=== PATIENT | male | born 1960 | race Caucasian/White ===

== ENCOUNTER 2019-03-02 12:56 | Emergency (ER) | payer OTHER, MEDICAID ==
[2019-03-02 13:07] VITALS: BP 152/93
--- NOTE | 2019-03-02 13:15 | UC ---
Dental HPI - HPI Summary HPI Summary: CHIEF COMPLAINT: 58 y/o male with toothache. Description of Pain: moderate tooth pain; over # 18 tooth. Began 2 weeks ago; no temp; on Elaquis. No face or neck involvement. Radiation: no Intensity:8/10 VITAL SIGNS & SaO2 REVIEWED. Within normal limits unless noted here. 153/93, on BP meds NURSES NOTE REVIEWED.LOST FILLING IN TOP LEFT MOLAR COUPLE DAYS AGO. WOKE UP 0100 W/ DENTAL PAIN. TAKING TYLENOL 1000mg tid PRN w/ some pain relief. - History of Current Complaint Chief Complaint: UCDentalProblem Stated Complaint: TOOTH ACHE Time Seen by Provider: 03/02/19 13:08 Pain Intensity: 8 - Allergies/Home Medications Allergies/Adverse Reactions: Allergies Allergy/AdvReac Type Severity Reaction Status Date / Time scopolamine Allergy Unknown Verified 03/02/19 13:00 Reaction Details Home Medications: Home Medications Apixaban* [Eliquis*] 5 mg PO BID 03/02/19 [History Confirmed 03/02/19] PMH/Surg Hx/FS Hx/Imm Hx - Additional Past Medical History Additional PMH: PAST MEDICAL HISTORY- HTN; hx of taking clonazepam. CHRONIC and RECURRENT HEALTH PROBLEM LIST REVIEWED: cholecystectomy VISIT HISTORY REVIEWED. MEDICATIONS & ALLERGIES REVIEWED. HYPERTENSION STATUS: on meds FAMILY HISTORY: Positive for: diabetes. Patient denies family history of: hypertension, cardiovascular disease, stroke, cancer. SOCIAL HISTORY: non-smoker, lives by himself, rare drinker. Previously Healthy: Yes - Surgical History Surgical History: Yes Surgery Procedure, Year, and Place: gallbladder removal- 2016. carpal tunnel release. diskectomy- 2014. LEFT KNEE 2019 - Family History Known Family History: Positive: Cardiac Disease, Diabetes - Social History Alcohol Use: Rare Substance Use Type: None Smoking Status (MU): Never Smoked Tobacco Review of Systems All Other Systems Reviewed And Are Negative: Yes Constitutional: Positive: Negative ENT: Positive: Dental Pain - #18 Respiratory: Positive: Negative. Negative: Shortness Of Breath Cardiovascular: Positive: Negative. Negative: Palpitations Gastrointestinal: Positive: Negative. Negative: Abdominal Pain Is Patient Immunocompromised?: No Physical Exam - Summary Physical Exam Summary: Appearance: The patient is well-appearing, is in no pain or distress, and is well-nourished. Eyes: Conjunctiva are clear. Pupils are equal and reactive to light and accommodation. Extra ocular muscle movement is intact. ENT: The hearing is grossly normal, the pharynx is normal, and the TMs are normal. There is no muffled or hoarse voice. No stridor. No facial swelling or anterior cervical adenopathy. Tender over tooth #18. Tooth has lost it filling. Palpation reveals no megan-apical abscess but patient is tender near top of the tooth. Neck: The neck is supple and there is no lymphadenopathy. Respiratory: The chest is non-tender to palpation and without crepitus. The lungs are clear, there are normal breath sounds, and there is no respiratory distress. No wheezes, rales or rhonchi. Cardiovascular: Heart sounds reveal a regular rate and rhythm. There are no clicks, rubs or murmurs. There are no carotid bruits or thrills. Circulation is grossly intact. Abdomen: The abdomen is soft and nontender. There is no organomegaly. Bowel sounds are present and within normal limits. No point tenderness at McBurneys point. No CVA tenderness. Musculoskeletal: Strength is intact. The patient moves all extremities. Neurological: The patient is alert. Motor and sensory are examination grossly intact. Speech is normal. Psychological: The patient displays age appropriate behavior, and is conversant. GCS=15. Skin: Negative for rashes. Triage Information Reviewed: Yes Vital Signs: Initial Vital Signs Temp 99.6 F 03/02/19 13:01 Pulse 89 03/02/19 13:01 Resp 16 03/02/19 13:01 BP 152/93 03/02/19 13:01 Pulse Ox 97 03/02/19 13:01 Vital Signs Reviewed: Yes Dental Complaint Course/Dx - Course Course Of Treatment: MEDICAL DECISION MAKING and PLAN: 58 y/o with moderate tooth pain; over # 18 tooth. Began 2 weeks ago; no temp; on Elaquis. No face or neck involvement. 99.6 temp. Tooth has lost filling. Dx is toothache. No megan apical abscess yet. Patient will use filler at pharmacy and go to dentist next week. Started on pen vk for 7 days, 500mg, four times a day. Also given 6 Vicodin. MEDICATIONS REVIEWED. HYPERTENSION STATUS REVIEWED WITH PATIENT IF blood pressure is above 120/80. Patient is being treated for hypertension, and will follow up with PMD within 4 weeks. [facility] prescription monitor: Reference #: [id number] Rx Written Rx Dispensed Drug Quantity Days Supply Prescriber Name 02/13/201912/2018 clonazepam 1 mg tablet 60 30 Dorothy Amor C 11/15/2018 11/16/2018 clonazepam 1 mg tablet 60 30 HettickKim 08/14/2018 08/15/2018 clonazepam 1 mg tablet 60 30 HettickKim 06/08/2018 06/09/2018 clonazepam 1 mg tablet 30 15 HettickKim guevara 06/01/2018 06/01/2018 hydrocodone-acetaminophen 5-325 mg tablet 20 5 Danisha Penny MD - Differential Dx/Diagnosis Differential Diagnosis/Dx: Dental Abscess, Dental Caries Provider Diagnosis: Toothache Discharge - Sign-Out/Discharge Documenting (check all that apply): Patient Departure All imaging exams completed and their final reports reviewed: No Studies - Discharge Plan Condition: Stable Disposition: HOME Prescriptions: HYDROcodone/ACETAMIN 5-325 MG* [[place] 5-325 TAB*] 1 tab PO Q6H #9 tab MDD 4 Penicillin VK TAB* [Penicillin VK 250 mg Tab*] 500 mg PO QID #28 tab MDD 4 Patient Education Materials: Toothache (ED) Referrals: Dorothy Amor [employer] [Primary Care Provider] - Additional Instructions: WE DISCUSSED: PLEASE SEEK CARE AT THE EMERGENCY DEPARTMENT IF SYMPTOMS WORSEN OR IF NEW SYMPTOMS DEVELOP. FOLLOW UP WITH YOUR PRIMARY CARE PHYSICIAN IF CONDITION CONTINUES BEYOND 3 DAYS WITHOUT IMPROVEMENT. YOUR DIAGNOSIS IS: tootheache # 18 plus a possible abscess at the top of your tooth. YOUR PRESCRIPTION RECOMMENDATION IS: Vicodine # 9 for pain; one pill up to every 6 hours; Pen VK 500mg, four times a day for 7 days OTHER INSTRUCTIONS: Hypertension Discharge Instructions: Your blood pressure reading today was 152/93 , indicating HYPERTENSION. Follow- up with your primary care provider within 4 weeks for blood pressure check and appropriate recommendations and treatment, as needed. FOR PAIN AND/OR SLEEP: For pain: acetaminophen (Tylenol and other brand names) 500mg - 1000mg every 8 hours. Go to drugstore for protective paste. Your toothe has lost part of the filling and is open to the air. Warm moist heat to your cheek, and hot water salt gargles every 4 hours. Vicodin has Tylenol in it. Don't double up with these. Go to ED for increased facial swelling, pain, redness or temperature. - Billing Disposition and Condition Condition: STABLE Disposition: Home
== END 2019-03-02 14:13 | disposition home or self-care (01) ==
LOC: UCEAST 12:56
DX: K08.89 Other specified disorders of teeth and supporting structures (principal); I10 Essential (primary) hypertension; Z79.01 Long term (current) use of anticoagulants
CPT/HCPCS: 99212; G0463

== ENCOUNTER 2019-05-15 07:40 | Emergency (ER) | payer OTHER, MEDICAID ==
--- OUTSIDE RECORDS SUMMARY | 2019-05-15 07:46 | XMS REPORT | Continuity of Care Document ---
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 Dorothy Amor FNP Primary Care Physician Unavailable Payers Date Identification Numbers Payment Provider Subscriber Policy Number: [id number] [facility] Community Plan Josh Ty PayID: [id number] [address] [place] [address] Problems Active Problems Provider Date Non-alcoholic fatty liver Mariely Brooks PA-C Onset: 03/06/2017 Lipoma (clinical) Mariely Brooks PA-C Onset: 03/06/2017 Note: mesenteric CT a&p February 2017 Pure hypercholesterolemia Abdon Justin MD,FACS Onset: 03/08/2017 Increased creatine kinase level Mariely Brooks PA-C Onset: 03/09/2017 Note: recurring, noted 2016 Diverticulitis Kim Richardson RPAC Onset: 07/25/2017 Note: 1999 Anxiety Kim Richardson RPAC Onset: 07/26/2017 Note: with insomnia Flatulence, eructation and gas pain Rolando Flores MD Onset: 09/01/2017 Heartburn Rolando Flores MD Onset: 09/01/2017 Note: endoscopy 08/2017 Morrissey's Degenerative joint disease involving Kim Richardson RPAC Onset: 2017 multiple joints Note: hips, lumbar Localized, primary osteoarthritis Beronica Miranda PA Onset: 04/30/2018 Derangement of knee Beronica Miranda PA Onset: 04/30/2018 Note: left Knee pain Kim Richardson RPAC Onset: 04/27/2018 Sprain of medial collateral ligament of Beronica Miranda PA Onset: 05/14/2018 knee Old tear of posterior horn of medial Beronica Miranda PA Onset: 05/14/2018 meniscus Essential hypertension Kim Richardson [facility] Onset: 05/25/2018 Note: treated with HCTZ Deep venous thrombosis Kim Richardson [facility] Onset: 09/27/2018 Note: LLE 09/2018 Pulmonary embolism Kim Richardson [facility] Onset: 09/27/2018 Note: 09/2018 Methylenetetrahydrofolate reductase deficiency MylesjoseKim DO Onset: Vitamin B deficiency Kim Quezada DO Onset: 02/18/2019 Vitamin D deficiency Kim Quezada DO Onset: 02/18/2019 H/O: pulmonary embolus MylesemreKim wetzel DO Onset: 04/10/2019 History of thromboembolism of vein HalirashardKim DO Onset: 04/10/2019 Hypercoagulability state Mylesjose KimDO Onset: 04/10/2019 Inactive Problems Weight decreased Rolando Flores MD Onset: 09/01/2017 Inactive: 05/25/2018 Resolved Problems Cholelithiasis without obstruction Mariely Brooks PA-C Onset: 2016 Resolved: 07/25/2017 Note: CT a&p, Disida scan February 2017 Gallstone Abdon Justin MD,FACS Onset: 03/27/2017 Resolved: 07/25/2017 Abdominal pain Abdon Justin MD,FACS Onset: 03/08/2017 Resolved: 07/25/2017 Family History Date Family Member(s) Observation Comments General Non Contributory Father Stroke Mother Stroke First Son Thrombosis quadriplegia First Sister Cancer Lymphoma First Sister Rheumatoid Arthritis Maternal Grandmother due to Heart Disease () Maternal Grandmother due to Type 2 Diabetes Mellitus () Social History Type Date Description Comments Sex Unknown Marital Status Single Marital Status Patient is Lives With Alone Home Environment Lives Alone Diet Patient follows no dietary restrictions 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 Tobacco Use Start: Unknown End: Quit Unknown Smoking Status Reviewed: 04/10/19 Quit Smokeless Tobacco Never Used Smokeless Tobacco ETOH Use Rarely consumes alcohol Tobacco Use Start: Unknown End: Patient is a former smoker ~1997 Unknown Recreational Drug Use Never Used Drugs Allergies, Adverse Reactions, Alerts Active Allergies Reaction Severity Comments Date Scopolamine nausea, hyper 03/06/2017 Trazodone cannot tolerate 07/26/2017 Atorvastatin muscle cramps 11/13/2018 Medications Active Medications SIG Qnty Indications Ordering Date Provider Folbee 1 tabl by mouth 30tabs Boufal, 04/18/2019 2.5-25-1mg Tablets every day DO Kim Ergocalciferol 1 cap by mouth 6caps Boufal, 02/18/2019 [id number] Capsules every week DO Kim Eliquis one tablet by 60tabs Dorothy Amor, 09/29/2018 5mg Tablets mouth twice a [employer] day Clonazepam take 1/2 to 1 60tabs Dorothy Amor, 11/17/2017 1mg Tablets tablet by mouth [employer] twice daily as needed for anxiety/ panic episode, maximum daily dose=2, Reference #: [id number] Paroxetine HCL take one tablet 90tabs Dorothy Amor, 08/16/2017 10mg Tablets by mouth every [employer] morning Clonidine HCL take one tablet 30tabs Dorothy Amor, 07/26/2017 0.1mg Tablets by mouth at [employer] bedtime as needed Hydroxyzine HCL Take One To Two 60tabs G47.00 Dorothy Amor, 07/26/2017 25mg Tablets Tablets By [employer] Mouth AT Bedtime as Needed For Insomnia Maximum Daily Dose=2 Losartan Potassium take one tablet 90tabs Dorothy Amor, 50mg Tablets by mouth every [employer] day Omeprazole take one 90caps Dorothy Amor, 40mg Capsules DR capsule by [employer] mouth every day Cyclobenzaprine HCL take one tablet 270tabs Dorothy Amor, 10mg Tablets by mouth three [employer] times a day as needed Hydrochlorothiazide take one tablet 90tabs Cale, 25mg Tablets by mouth every Jaime, M.D. day History Medications Folbee 1 tabl by mouth 30tabs Damien, 02/18/2019 - 2.5-25-1mg every day DO Kim 04/10/2019 Tablets Lovaza 2 caps by mouth 360caps E78.5 Jaime Madsen, 11/20/2018 - 1gm Capsules twice a day M.D. 11/22/2018 Vascepa 2 caps by mouth 120caps E78.5 Jaime Madsen, 11/13/2018 - 1gm Capsules twice a day M.D. 11/20/2018 Cephalexin 1 po tid 30caps Catrachito Daphnie, 11/02/2018 - 500mg MD 11/07/2018 Capsules Prednisone 1 tab by mouth 10tabs M25.571 Catrachito Daphnie, 10/31/2018 - 20mg twice a day MD 11/05/2018 Tablets Colchicine 2 po with first 30caps M25.571 Catrachito, Daphnie, 10/31/2018 - 0.6mg dose, then 1 po MD 11/07/2018 Capsules tid. Continue for 3 days after pain resolves. If develops diarrhea, decrease to 1 po daily Atorvastatin Calcium take one tablet 90tabs Jaime Madsen, 08/14/2018 - by mouth every M.D. 10/02/2018 20mg Tablets night Hydrocodone-Acetamin 1 tab by mouth 60tabs Danisha Penny 06/01/2018 - ophen every 4 - 6 hours 06/12/2018 5-325mg Tablets as need for pain.... Clonazepam 1/2-1 tab by 14tabs Jaime Madsen, 09/01/2017 - 1mg mouth twice a day M.D. Unknown Tablets as needed for anxiety/panic episode ::: mdd 2 Golytely drink half the 4000ml Z12.Christiane Flores MD 09/01/2017 - 236gm evening before 12/20/2017 Solution Rec and half the morning of the procedure (1 cup every 10') Dulcolax 4 tablets taken a 4tabs Z12.Christiane Flores MD 09/01/2017 - 5mg Tablets 8pm the day 12/20/2017 DR before the procedure Magnesium Citrate 1 bottle po x one 296ml Apolonia12.Christiane Flores MD 09/01/2017 - as directed 12/20/2017 1.745GM/30ML Solution Paroxetine HCL ER 1 by mouth every 30tabs Jaime Madsen, 07/26/2017 - Am M.D. 08/16/2017 12.5mg Tablets ER 24HR Mirtazapine 1 at hs prn G47.00 Jaime Madsen, 07/05/2017 - 15mg M.D. 07/26/2017 Tablets Belsomra 1 tablet by mouth 30tabs Jaime Madsen, 07/04/2017 - 10mg Tablets every night at M.D. Unknown bedtime as needed Trazodone HCL take one to two 180tabs Albin Madsenshan, 07/03/2017 - 50mg tablets by mouth M.D. 07/05/2017 Tablets at bedtime Mirtazapine 1/2 -1 tablet by 30tabs G47.00 Liborio Madsenan, 06/12/2017 - 15mg mouth at at M.D. 07/03/2017 Tablets bedtime Amoxicillin 1 by mouth three 21caps K02.3 MadsenAlbin tuckershan, 03/06/2017 - 500mg times a day x 7 M.D. 03/27/2017 Capsules days Probiotic 1-2 capsules by 90caps K02.3 MadsenAlbinJaime, 03/06/2017 - Acidophilus mouth daily x 10 M.D. Unknown Capsules days Naproxen take one tablet 180tabs Jaime Madsen, - 500mg by mouth with M.D. 10/02/2018 Tablets food, twice a day as needed Atorvastatin Calcium take one tablet 90tabs Liborio Madsenan, - by mouth every M.D. 04/27/2018 20mg Tablets night Probiotic 1 by mouth every Unknown - Capsules day 11/07/2018 Potassium Chloride Take One Tablet Unknown - Rosanne ER By Mouth Three 04/30/2018 20Meq Tablets Times A Day ER Magnesium Oxide Take One Tablet Unknown - By Mouth Twice A 11/07/2018 400(241.3Mg) mg Day Tablets Medications Administered in Office Medication SIG Qnty Indications Ordering Provider Date Vitamin B12 Injection 1000 Kim Quezada DO 04/10/2019 mcg/Ml Injection PPD Family Nurse 02/25/2019 Injection Vital Signs Date Vital Result Comment 04/10/2019 1:55pm BP Systolic 138 mmHg BP Diastolic 78 mmHg Body Temperature 97.8 F Heart Rate 86 /min Respiratory Rate 20 /min Height 68 inches 5'8" Weight 241.00 lb BMI (Body Mass Index) 36.6 kg/m2 BSA (Body Surface Area) 2.21 m2 Veblen body weight in kilograms 70 kg O2 % BldC Oximetry 94 % Pain Level 0 04/10/2019 9:14am Body Temperature 98.6 F Heart Rate 80 /min Respiratory Rate 16 /min Weight 240.12 lb O2 % BldC Oximetry 98 % Pain Level 0 02/25/2019 10:59am Body Temperature 97.8 F Heart Rate 84 /min O2 % BldC Oximetry 96 % 02/18/2019 7:50am BP Systolic 127 mmHg BP Diastolic 79 mmHg Body Temperature 97.5 F Heart Rate 82 /min Respiratory Rate 16 /min Weight 248.38 lb O2 % BldC Oximetry 97 % Pain Level 0 12/31/2018 9:47am BP Systolic 132 mmHg BP Diastolic 78 mmHg Body Temperature 97.7 F Heart Rate 94 /min Respiratory Rate 18 /min Height 68 inches 5'8" Weight 245.00 lb BMI (Body Mass Index) 37.2 kg/m2 BSA (Body Surface Area) 2.23 m2 [place] body weight in kilograms 70 kg O2 % BldC Oximetry 95 % 11/20/2018 2:30pm BP Systolic 138 mmHg BP Diastolic 84 mmHg Body Temperature 98.4 F Heart Rate 84 /min Respiratory Rate 18 /min Weight 239.38 lb O2 % BldC Oximetry 97 % Pain Level 0 11/13/2018 1:27pm BP Systolic Sitting Left Arm 124 mmHg BP Diastolic Sitting Left Arm 74 mmHg Body Temperature 99.3 F Heart Rate 95 /min Respiratory Rate 18 /min Height 68 inches 5'8" Weight 235.00 lb BMI (Body Mass Index) 35.7 kg/m2 BSA (Body Surface Area) 2.19 m2 [place] body weight in kilograms 70 kg O2 % BldC Oximetry 98 % Ra 11/07/2018 8:26am BP Systolic 118 mmHg L BP Diastolic 72 mmHg L Body Temperature 98.4 F Heart Rate 90 /min Respiratory Rate 18 /min Weight 237.38 lb O2 % BldC Oximetry 98 % Pain Level 0 10/31/2018 10:52am BP Systolic Sitting Left Arm 143 mmHg BP Diastolic Sitting Left Arm 84 mmHg Body Temperature 100.0 F Heart Rate 89 /min Respiratory Rate 16 /min Height 68 inches 5'8" Weight 237.00 lb BMI (Body Mass Index) 36.0 kg/m2 BSA (Body Surface Area) 2.20 m2 O2 % BldC Oximetry 98 % 10/02/2018 1:18pm BP Systolic Sitting Left Arm 148 mmHg BP Diastolic Sitting Left Arm 84 mmHg Body Temperature 98.7 F Heart Rate 93 /min Respiratory Rate 20 /min Height 68 inches 5'8" Weight 235.00 lb BMI (Body Mass Index) 35.7 kg/m2 BSA (Body Surface Area) 2.19 m2 O2 % BldC Oximetry 98 % 08/14/2018 10:00am BP Systolic 144 mmHg BP Diastolic 88 mmHg Body Temperature 98.9 F Heart Rate 97 /min Respiratory Rate 18 /min Height 68 inches 5'8" Weight 236.50 lb BMI (Body Mass Index) 36.0 kg/m2 BSA (Body Surface Area) 2.19 m2 O2 % BldC Oximetry 97 % 07/11/2018 9:21am BP Systolic 122 mmHg BP Diastolic 74 mmHg Body Temperature 97.8 F Heart Rate 76 /min Height 68 inches 5'8" Weight 233.00 lb BMI (Body Mass Index) 35.4 kg/m2 BSA (Body Surface Area) 2.18 m2 O2 % BldC Oximetry 99 % Pain Level 0 06/12/2018 10:38am BP Systolic Sitting Left Arm 119 mmHg BP Diastolic Sitting Left Arm 75 mmHg Body Temperature 98.7 F Heart Rate 81 /min Respiratory Rate 16 /min Height 68 inches 5'8" Weight 233.00 lb BMI (Body Mass Index) 35.4 kg/m2 BSA (Body Surface Area) 2.18 m2 O2 % BldC Oximetry 98 % 05/25/2018 10:37am BP Systolic 123 mmHg BP Diastolic 81 mmHg Body Temperature 98.2 F Heart Rate 76 /min Respiratory Rate 18 /min Height 68 inches 5'8" Weight 233.12 lb BMI (Body Mass Index) 35.4 kg/m2 BSA (Body Surface Area) 2.18 m2 O2 % BldC Oximetry 96 % 05/17/2018 10:22am BP Systolic Sitting Left Arm 124 mmHg BP Diastolic Sitting Left Arm 81 mmHg Body Temperature 98.1 F Heart Rate 79 /min Respiratory Rate 17 /min Height 68 inches 5'8" Weight 235.00 lb BMI (Body Mass Index) 35.7 kg/m2 BSA (Body Surface Area) 2.19 m2 O2 % BldC Oximetry 96 % 05/14/2018 10:15am BP Systolic Sitting Left Arm 128 mmHg BP Diastolic Sitting Left Arm 74 mmHg Body Temperature 98.0 F Heart Rate 77 /min Respiratory Rate 16 /min Height 68 inches 5'8" Weight 233.00 lb BMI (Body Mass Index) 35.4 kg/m2 BSA (Body Surface Area) 2.18 m2 O2 % BldC Oximetry 98 % 04/30/2018 2:18pm BP Systolic Sitting Right Arm 119 mmHg BP Diastolic Sitting Right Arm 81 mmHg Body Temperature 98.8 F Heart Rate 70 /min Respiratory Rate 17 /min Height 68 inches 5'8" Weight 230.00 lb BMI (Body Mass Index) 35.0 kg/m2 BSA (Body Surface Area) 2.17 m2 O2 % BldC Oximetry 98 % 04/27/2018 9:54am BP Systolic Sitting Right Arm 118 mmHg BP Diastolic Sitting Right Arm 72 mmHg Body Temperature 97.9 F Heart Rate 72 /min reg Respiratory Rate 18 /min Height 68 inches 5'8" Weight 228.00 lb BMI (Body Mass Index) 34.7 kg/m2 BSA (Body Surface Area) 2.16 m2 O2 % BldC Oximetry 95 % ra 12/20/2017 9:14am BP Systolic Sitting Right Arm 104 mmHg BP Diastolic Sitting Right Arm 60 mmHg Heart Rate 62 /min Height 68 inches 5'8" Weight 220.00 lb BMI (Body Mass Index) 33.4 kg/m2 BSA (Body Surface Area) 2.13 m2 O2 % BldC Oximetry 95 % ra 09/13/2017 11:37am BP Systolic Sitting Left Arm 112 mmHg BP Diastolic Sitting Left Arm 62 mmHg Heart Rate 74 /min Respiratory Rate 18 /min Height 68 inches 5'8" Weight 220.00 lb BMI (Body Mass Index) 33.4 kg/m2 BSA (Body Surface Area) 2.13 m2 O2 % BldC Oximetry 98 % ra 09/01/2017 12:53pm BP Systolic Sitting Left Arm 120 mmHg BP Diastolic Sitting Left Arm 72 mmHg Heart Rate 74 /min Respiratory Rate 16 /min Height 68 inches 5'8" Weight 220.00 lb BMI (Body Mass Index) 33.4 kg/m2 BSA (Body Surface Area) 2.13 m2 07/26/2017 9:16am BP Systolic Sitting Right Arm 112 mmHg BP Diastolic Sitting Right Arm 72 mmHg Heart Rate 89 /min Height 68 inches 5'8" Weight 222.00 lb BMI (Body Mass Index) 33.8 kg/m2 BSA (Body Surface Area) 2.14 m2 O2 % BldC Oximetry 98 % ra 06/12/2017 10:06am BP Systolic Sitting Left Arm 142 mmHg BP Diastolic Sitting Left Arm 82 mmHg Heart Rate 80 /min Respiratory Rate 20 /min Height 68 inches 5'8" Weight 226.00 lb BMI (Body Mass Index) 34.4 kg/m2 BSA (Body Surface Area) 2.15 m2 06/05/2017 10:43am BP Systolic Sitting Left Arm 118 mmHg BP Diastolic Sitting Left Arm 84 mmHg Heart Rate 78 /min Respiratory Rate 24 /min Height 68 inches 5'8" Weight 229.00 lb BMI (Body Mass Index) 34.8 kg/m2 BSA (Body Surface Area) 2.16 m2 O2 % BldC Oximetry 99 % ra 03/27/2017 9:50am BP Systolic 138 mmHg BP Diastolic 78 mmHg Height 68 inches 5'8" Weight 244.00 lb BMI (Body Mass Index) 37.1 kg/m2 BSA (Body Surface Area) 2.22 m2 03/08/2017 9:31am BP Systolic 130 mmHg BP Diastolic 82 mmHg Height 68 inches 5'8" Weight 245.00 lb BMI (Body Mass Index) 37.2 kg/m2 BSA (Body Surface Area) 2.23 m2 03/06/2017 11:21am BP Systolic 132 mmHg BP Diastolic 82 mmHg Heart Rate 77 /min Height 68 inches 5'8" Weight 246.00 lb BMI (Body Mass Index) 37.4 kg/m2 BSA (Body Surface Area) 2.23 m2 11/09/2006 9:12am Height 68 inches 5'8" Weight 247.00 lb Results Test Date Facility Test Result H/L Range Note Homocyst(E)I 04/01/2019 [facility] Homocyst(e)in 12.3 umol/L 0.0-15.0 1, 2 ne, P/S [address] e, [place] [address] [phone] CBC 04/01/2019 [facility] White Blood 6.8 K/uL Normal 3.4-10.5 W/Automated [address] [place] [address] [phone] Red Blood Count 4.60 M/uL Normal 4.20-5.80 Hemoglobin 14.7 gm/dL Normal 12.8-17.0 Hematocrit 43.4 % Normal 38.0-48.0 Mean Cell Volume 94.3 fl Normal 80.0-96.0 Mean Corpuscular HGB 32.0 pg Normal 27.0-33.0 Mean Corpuscular HGB Conc 33.9 g/dL Normal 31.7-36.0 Platelet Count 310 K/uL Normal 155-360 Red Cell Distri Width SD 42.9 fl Normal 36-51 Red Cell Distri Width %CV 12.5 % Normal 11.6-15.8 Mean Platelet Volume 8.7 fl Normal 6.6-10.6 Neut% 53.2 % Normal 33.0-73.0 Lymph % 33.3 % Normal 20.0-42.0 [place] % 10.0 % Normal 0.0-10.0 Eo% 2.5 % Normal 0.0-6.6 Bas% 0.6 % Normal 0.0-1.1 Immature Grans 0.4 % Normal 0.0-5.0 NRBC % 0.4 /100WBC < 10/ 100 WBC Neut# 3.63 K/uL Normal 1.8-7.0 Lymph # 2.27 K/uL Normal 1.0-4.0 [place] # 0.68 K/uL Normal 0.0-0.8 Eos # 0.17 K/uL Normal 0.0-0.5 Baso # 0.04 K/uL Normal 0.0-0.1 Immature Grans Absolute 0.03 K/uL NRBC # 0.03 K/uL Comprehensive Metabolic 04/01/2019 [facility] Glucose 113 mg/dL High 74-[address] [place] [address] [phone] BUN 18 mg/dL Normal 7-18 Creatinine 1.1 mg/dL Normal 0.6-1.3 Glom Filtration Rate, Estimate >60 mL/min >60 If >60 mL/min >60 3 BUN/Creat 16.3 ratio Sodium 136 mmol/L Normal 136-145 Potassium 3.6 mmol/L Normal 3.5-5.1 Chloride 102 mmol/L Normal 98-107 Carbon Dioxide 27 mmol/L Normal 21-32 Anion Gap 7 mEq/L Low 8-16 Calcium 9.3 mg/dL Normal 8.5-10.1 Total Protein 7.7 g/dL Normal 6.4-8.2 Albumin 3.7 g/dL Normal 3.4-5.0 Globulin 4.0 g/dL Normal 1.9-4.3 Alb/Glob 0.9 ratio Bilirubin,Total 0.4 mg/dL Normal 0.2-1.0 Sgot/Ast 30 U/L Normal 15-37 SGPT/Alt 53 U/L Normal 12-78 Alkaline Phosphatase 44 U/L Low 45-117 Vitamin B12 And 04/01/2019 [facility] Vitamin B12 438 pg/mL Normal 193-[address] [place] [address] [phone] Folic Acid 19.9 ng/mL High 3.1-17.5 Laboratory 04/01/2019 [facility] Vitamin 25.8 Low 30.0-100.0 4 test finding [address] D,25-Hydroxy ng/[place] [address] [phone] Iron-Tibc-%Sat 04/01/2019 [facility] Serum Iron 147 Normal 65-[address] g/[place] [address] [phone] Total Iron Binding Capacity 304 g/dL Normal 250-450 Transferrin %Saturation 48 % Normal 12-57 Laboratory test 04/01/2019 [facility] Ferritin 176 Normal 26-[address] ng/[place] [address] [phone] Anticardiolipin AB 02/15/2019 [facility] Anticardiolipin 20 High 0-14 5 Iga/Igg/Igm [address] Igg GPLU/[place] [address] [phone] Anticardiolipin Igm, Quant 13 MPLU/mL High 0-12 6 Anticardiolipin Iga < 9 APLU/mL 0-11 7 Laboratory test 02/15/2019 [facility] Ferritin 205 ng/mL Normal 26-[address] [place] [address] [phone] Iron-Tibc-%Sat 02/15/2019 [facility] Serum Iron 134 g/dL Normal 65-[address] [place], [place] [id number] [phone] Total Iron Binding Capacity 339 g/dL Normal 250-450 Transferrin %Saturation 40 % Normal 12-57 Laboratory 02/15/2019 [facility] Vitamin 21.1 Low 30.0-100.0 8 test finding [address] D,25-Hydroxy ng/[place] [address] [phone] Vitamin B12 02/15/2019 [facility] Vitamin B12 462 Normal 193-[address] pg/[place] [address] [phone] Folic Acid 16.8 ng/mL Normal 3.1-17.5 Comprehensive 02/15/2019 [facility] Glucose 104 mg/dL Normal 74-106 Metabolic Panel [address] [place] [address] [phone] BUN 23 mg/dL High 7-18 Creatinine 1.1 mg/dL Normal 0.6-1.3 Glom Filtration Rate, Estimate >60 mL/min >60 If >60 mL/min >60 9 BUN/Creat 20.9 ratio Sodium 132 mmol/L Low 136-145 Potassium 3.7 mmol/L Normal 3.5-5.1 Chloride 99 mmol/L Normal 98-107 Carbon Dioxide 28 mmol/L Normal 21-32 Anion Gap 5 mEq/L Low 8-16 Calcium 9.2 mg/dL Normal 8.5-10.1 Total Protein 8.1 g/dL Normal 6.4-8.2 Albumin 4.0 g/dL Normal 3.4-5.0 Globulin 4.1 g/dL Normal 1.9-4.3 Alb/Glob 1.0 ratio Bilirubin,Total 0.5 mg/dL Normal 0.2-1.0 Sgot/Ast 34 U/L Normal 15-37 SGPT/Alt 63 U/L Normal 12-78 Alkaline Phosphatase 46 U/L Normal 45-117 CBC W/Automated 02/15/2019 [facility] White Blood 7.4 K/uL Normal 3.4-10.[address] [place] [address] [phone] Red Blood Count 4.75 M/uL Normal 4.20-5.80 Hemoglobin 15.4 gm/dL Normal 12.8-17.0 Hematocrit 44.7 % Normal 38.0-48.0 Mean Cell Volume 94.1 fl Normal 80.0-96.0 Mean Corpuscular HGB 32.4 pg Normal 27.0-33.0 Mean Corpuscular HGB Conc 34.5 g/dL Normal 31.7-36.0 Platelet Count 342 K/uL Normal 155-360 Red Cell Distri Width SD 43.8 fl Normal 36-51 Red Cell Distri Width %CV 12.6 % Normal 11.6-15.8 Mean Platelet Volume 8.9 fl Normal 6.6-10.6 Neut% 50.2 % Normal 33.0-73.0 Lymph % 36.5 % Normal 20.0-42.0 [place] % 10.1 % High 0.0-10.0 Eo% 2.3 % Normal 0.0-6.6 Bas% 0.5 % Normal 0.0-1.1 Immature Grans 0.4 % Normal 0.0-5.0 NRBC % 0.0 /100WBC < 10/ 100 WBC Neut# 3.72 K/uL Normal 1.8-7.0 Lymph # 2.71 K/uL Normal 1.0-4.0 [place] # 0.75 K/uL Normal 0.0-0.8 Eos # 0.17 K/uL Normal 0.0-0.5 Baso # 0.04 K/uL Normal 0.0-0.1 Immature Grans Absolute 0.03 K/uL NRBC # 0.00 K/uL Homocyst(E)Ine, 02/15/2019 [facility] Homocyst(e)ine, 14.0 0.0-15.0 10 P/S [address] P/S umol/[place] [address] [phone] Laboratory test 11/07/2018 [facility] DRVVT Mix 50.0 High 0.0-47.0 [address] [place] [address] [phone] DRVVT Confirm 1.4 ratio High 0.8-1.2 Anticardiolipin AB 11/07/2018 [facility] Anticardiolipin 26 High 0-14 12 Iga/Igg/Igm [address] Igg GPLU/[place] [address] [phone] Anticardiolipin Igm, Quant 14 MPLU/mL High 0-12 13 Anticardiolipin Iga < 9 APLU/mL 0-11 14 Lupus Anticoagulant Reflex 11/07/2018 [facility] PTT-LA 34.7 sec 0.0-51.[address] [place] [address] [phone] DRVVT 64.9 sec High 0.0-47.0 Note: Comment: . 15 Methylenetetrahydrofolate 11/07/2018 [facility] MTHFR,Dna (SEE [address] Analysis NOTE) [place] [address] [phone] Factor II Dna Analysis 11/07/2018 [facility] Factor II, (SEE Abnormal [address] Dna NOTE) [place] [address] Analysis [phone] Factor V Leiden Mutation 11/07/2018 [facility] Factor V (SEE [address] Leiden NOTE) [place] [address] [phone] CBC W/Automated Diff 10/31/2018 [facility] White Blood 11.2 High [address] Count K/[place] [address] [phone] - 1 0 . 5 Red Blood Count 4.48 M/uL Normal 4.20-5.80 Hemoglobin 14.6 gm/dL Normal 12.8-17.0 Hematocrit 42.7 % Normal 38.0-48.0 Mean Cell Volume 95.3 fl Normal 80.0-96.0 Mean Corpuscular HGB 32.6 pg Normal 27.0-33.0 Mean Corpuscular HGB Conc 34.2 g/dL Normal 31.7-36.0 Platelet Count 337 K/uL Normal 155-360 Red Cell Distri Width SD 43.9 fl Normal 36-51 Red Cell Distri Width %CV 12.8 % Normal 11.6-15.8 Mean Platelet Volume 9.4 fL Normal 6.6-10.6 Neut% 61.7 % Normal 33.0-73.0 Lymph % 25.1 % Normal 20.0-42.0 [place] % 10.8 % High 0.0-10.0 Eo% 2.1 % Normal 0.0-6.6 Bas% 0.3 % Normal 0.0-1.1 Neut# 6.89 K/uL Normal 1.8-7.0 Lymph # 2.80 K/uL Normal 1.0-4.0 [place] # 1.20 K/uL High 0.0-0.8 Eos # 0.23 K/uL Normal 0.0-0.5 Baso # 0.03 K/uL Normal 0.0-0.1 Laboratory test 10/31/2018 [facility] Uric Acid 5.8 mg/dL Normal 3.5-7.2 finding [address] [place] [address] [phone] CBC 09/29/2018 [facility] White 9.3 K/uL Normal 3.4-10.5 20 134 [facility] [place] [address] Count [phone] Red Blood Count 4.78 M/uL Normal 4.20-5.80 Hemoglobin 15.4 gm/dL Normal 12.8-17.0 Hematocrit 45.5 % Normal 38.0-48.0 Mean Cell Volume 95.2 fl Normal 80.0-96.0 Mean Corpuscular HGB 32.2 pg Normal 27.0-33.0 Mean Corpuscular HGB Conc 33.8 g/dL Normal 31.7-36.0 Platelet Count 289 K/uL Normal 155-360 Red Cell Distri Width %CV 13.0 % Normal 11.6-15.8 Mean Platelet Volume 9.0 fL Normal 6.6-10.6 Basic Metabolic Panel 09/29/2018 [facility] Glucose 106 mg/dL Normal 74-106 [address] [place] [address] [phone] BUN 17 mg/dL Normal 7-18 Creatinine 1.0 mg/dL Normal 0.6-1.3 Glom Filtration Rate, Estimate >60 mL/min >60 If >60 mL/min >60 21 BUN/Creat 17.0 ratio Sodium 138 mmol/L Normal 136-145 Potassium 3.7 mmol/L Normal 3.5-5.1 Chloride 101 mmol/L Normal 98-107 Carbon Dioxide 30 mmol/L Normal 21-32 Anion Gap 7 mEq/L Low 8-16 Calcium 9.2 mg/dL Normal 8.5-10.1 Laboratory 09/29/2018 [facility] Act 64.9 High 23.4-35.0 22 test finding [address] [place] [address] [employer] [phone] Time Laboratory 09/28/2018 [facility] Act 128.5 Critical 23.4-35.0 23 test finding [address] [place] [place] [address] [employer] [phone] Time Laboratory 09/28/2018 [facility] Act 63.4 High 23.4-35.0 24 test finding [address] [address] [place] [address] [facility] [phone] Time Basic 09/28/2018 [facility] Glucose 133 mg/dL High 74-[address] [place] [address] [phone] BUN 16 mg/dL Normal 7-18 Creatinine 1.1 mg/dL Normal 0.6-1.3 Glom Filtration Rate, Estimate >60 mL/min >60 If >60 mL/min >60 25 BUN/Creat 14.5 ratio Sodium 137 mmol/L Normal 136-145 Potassium 3.5 mmol/L Normal 3.5-5.1 Chloride 100 mmol/L Normal 98-107 Carbon Dioxide 28 mmol/L Normal 21-32 Anion Gap 9 mEq/L Normal 8-16 Calcium 9.1 mg/dL Normal 8.5-10.1 CBC W/Automated 09/28/2018 [facility] White Blood 8.3 K/uL Normal 3.4-10.[address] [place] [address] [phone] Red Blood Count 4.76 M/uL Normal 4.20-5.80 Hemoglobin 15.6 gm/dL Normal 12.8-17.0 Hematocrit 45.5 % Normal 38.0-48.0 Mean Cell Volume 95.6 fl Normal 80.0-96.0 Mean Corpuscular HGB 32.8 pg Normal 27.0-33.0 Mean Corpuscular HGB Conc 34.3 g/dL Normal 31.7-36.0 Platelet Count 265 K/uL Normal 155-360 Red Cell Distri Width SD 44.2 fl Normal 36-51 Red Cell Distri Width %CV 12.9 % Normal 11.6-15.8 Mean Platelet Volume 9.0 fL Normal 6.6-10.6 Neut% 51.1 % Normal 33.0-73.0 Lymph % 34.4 % Normal 20.0-42.0 [place] % 7.0 % Normal 0.0-10.0 Eo% 7.0 % High 0.0-6.6 Bas% 0.5 % Normal 0.0-1.1 Neut# 4.25 K/uL Normal 1.8-7.0 Lymph # 2.86 K/uL Normal 1.0-4.0 [place] # 0.58 K/uL Normal 0.0-0.8 Eos # 0.58 K/uL High 0.0-0.5 Baso # 0.04 K/uL Normal 0.0-0.1 Laboratory 09/28/2018 [facility] Act 42.2 High 23.4-35.0 test finding [address] [place] [address] [facility] [phone] Time Laboratory 09/28/2018 [facility] Act 137.4 Critical 23.4-35.0 26 test finding [address] [place] [place] [address] [facility] [phone] Time Laboratory 09/27/2018 [facility] Act > 150.0 Critical 23.4-35.0 27 test finding [address] [place] [place] [address] [facility] [phone] Time Aot Request 09/27/2018 [facility] Aot Test(s) [address] [place] [place] [address] [phone] Tests to be added: PT/PTT, INR Instructions: STARTING ON HEPA <SEE NOTE> 29 Aot Request 09/27/2018 [facility] Aot Request Test(s) added [address] [place] [address] [phone] Tests to be added: PSA Comprehensive 09/27/2018 [facility] Glucose 96 mg/dL Normal 74-106 31 Metabolic Panel [address] [place] [address] [phone] BUN 14 mg/dL Normal 7-18 Creatinine 1.2 mg/dL Normal 0.6-1.3 Glom Filtration Rate, Estimate >60 mL/min >60 If >60 mL/min >60 32 BUN/Creat 11.6 ratio Sodium 135 mmol/L Low 136-145 Potassium 3.6 mmol/L Normal 3.5-5.1 Chloride 99 mmol/L Normal 98-107 Carbon Dioxide 27 mmol/L Normal 21-32 Anion Gap 9 mEq/L Normal 8-16 Calcium 9.2 mg/dL Normal 8.5-10.1 Total Protein 8.7 g/dL High 6.4-8.2 Albumin 4.4 g/dL Normal 3.4-5.0 Globulin 4.3 g/dL Normal 1.9-4.3 Alb/Glob 1.0 ratio Bilirubin,Total 0.7 mg/dL Normal 0.2-1.0 Sgot/Ast 28 U/L Normal 15-37 SGPT/Alt 45 U/L Normal 12-78 Alkaline Phosphatase 67 U/L Normal 45-117 Laboratory test finding 09/27/2018 [facility] NT-proBNP 30.0 pg/mL <[address] [place] [address] [phone] Troponin-I < 0.015 ng/mL 33 CBC W/Automated 09/27/2018 [facility] White Blood 11.6 K/uL High 3.4-10.[address] [place] [address] [phone] Red Blood Count 4.80 M/uL Normal 4.20-5.80 Hemoglobin 15.5 gm/dL Normal 12.8-17.0 Hematocrit 45.4 % Normal 38.0-48.0 Mean Cell Volume 94.6 fl Normal 80.0-96.0 Mean Corpuscular HGB 32.3 pg Normal 27.0-33.0 Mean Corpuscular HGB Conc 34.1 g/dL Normal 31.7-36.0 Platelet Count 275 K/uL Normal 155-360 Red Cell Distri Width SD 43.7 fl Normal 36-51 Red Cell Distri Width %CV 12.9 % Normal 11.6-15.8 Mean Platelet Volume 8.9 fL Normal 6.6-10.6 Neut% 56.1 % Normal 33.0-73.0 Lymph % 29.7 % Normal 20.0-42.0 [place] % 8.1 % Normal 0.0-10.0 Eo% 5.6 % Normal 0.0-6.6 Bas% 0.5 % Normal 0.0-1.1 Neut# 6.48 K/uL Normal 1.8-7.0 Lymph # 3.43 K/uL Normal 1.0-4.0 [place] # 0.93 K/uL High 0.0-0.8 Eos # 0.65 K/uL High 0.0-0.5 Baso # 0.06 K/uL Normal 0.0-0.1 Laboratory 09/27/2018 [facility] D-Dimer, 6.72 Critical 34 test finding [address] Quantitative ug/mL high [place], [place] [id number] [phone] Prostate Specific Antigen 1.03 ng/mL < 4.0 35 Laboratory test 04/27/2018 [facility] Magnesium 2.3 mg/dL Normal 1.8-2.4 36 finding [address] [place] [address] [phone] Basic Metabolic 04/27/2018 [facility] Glucose 87 mg/dL Normal 74-106 Panel [address] [place] [address] [phone] BUN 21 mg/dL High 7-18 Creatinine 1.0 mg/dL Normal 0.6-1.3 Glom Filtration Rate, Estimate >60 mL/min >60 If >60 mL/min >60 37 BUN/Creat 21.0 ratio Sodium 138 mmol/L Normal 136-145 Potassium 4.4 mmol/L 3.5-5.1 Chloride 101 mmol/L Normal 98-107 Carbon Dioxide 30 mmol/L Normal 21-32 Anion Gap 7 mEq/L Low 8-16 Calcium 9.5 mg/dL Normal 8.5-10.1 Laboratory test 04/27/2018 [facility] CK 268 U/L Normal 39-308 finding [address] [place] [address] [phone] Laboratory test 04/20/2018 [facility] Magnesium 1.9 mg/dL Normal 1.8-2.4 38 finding [address] [place] [address] [phone] CK 671 U/L High 39-308 Lyme Total AB/Reflex To WB < 0.91 ISR 0.00-0.90 39 Comprehensive Metabolic 04/20/2018 [facility] Glucose 120 mg/dL High 74-[address] [place] [address] [phone] BUN 25 mg/dL High 7-18 Creatinine 1.2 mg/dL Normal 0.6-1.3 Glom Filtration Rate, Estimate >60 mL/min >60 If >60 mL/min >60 40 BUN/Creat 20.8 ratio Sodium 136 mmol/L Normal 136-145 Potassium 3.3 mmol/L Low 3.5-5.1 Chloride 99 mmol/L Normal 98-107 Carbon Dioxide 26 mmol/L Normal 21-32 Anion Gap 11 mEq/L Normal 8-16 Calcium 9.2 mg/dL Normal 8.5-10.1 Total Protein 8.6 g/dL High 6.4-8.2 Albumin 4.4 g/dL Normal 3.4-5.0 Globulin 4.2 g/dL Normal 1.9-4.3 Alb/Glob 1.0 ratio Bilirubin,Total 0.8 mg/dL Normal 0.2-1.0 Sgot/Ast 29 U/L Normal 15-37 SGPT/Alt 30 U/L Normal 12-78 Alkaline Phosphatase 61 U/L Normal 45-117 CBS W/Automated 04/20/2018 [facility] White Blood 9.1 K/uL Normal 3.4-10.[address] [place] [address] [phone] Red Blood Count 4.55 M/uL Normal 4.20-5.80 Hemoglobin 15.0 gm/dL Normal 12.8-17.0 Hematocrit 43.4 % Normal 38.0-48.0 Mean Cell Volume 95.4 fl Normal 80.0-96.0 Mean Corpuscular HGB 33.0 pg Normal 27.0-33.0 Mean Corpuscular HGB Conc 34.6 g/dL Normal 31.7-36.0 Platelet Count 304 K/uL Normal 155-360 Red Cell Distri Width SD 43.0 fl Normal 36-51 Red Cell Distri Width %CV 12.7 % Normal 11.6-15.8 Mean Platelet Volume 9.0 fL Normal 6.6-10.6 Neut% 54.5 % Normal 33.0-73.0 Lymph % 32.7 % Normal 20.0-42.0 [place] % 10.0 % Normal 0.0-10.0 Eo% 2.4 % Normal 0.0-6.6 Bas% 0.4 % Normal 0.0-1.1 Neut# 4.93 K/uL Normal 1.8-7.0 Lymph # 2.96 K/uL Normal 1.0-4.0 [place] # 0.91 K/uL High 0.0-0.8 Eos # 0.22 K/uL Normal 0.0-0.5 Baso # 0.04 K/uL Normal 0.0-0.1 Laboratory test 12/25/2017 [facility] Prostate 0.83 ng/mL < 4.0 41, [address] [place] [address] Antigen [phone] Slide Review (SEE NOTE) 43 CBS W/Automated 12/25/2017 [facility] White Blood 10.9 K/uL High 3.4-10.[address] Count [place], [place] [id number] [phone] Red Blood Count 4.37 M/uL Normal 4.20-5.80 Hemoglobin 14.4 gm/dL Normal 12.8-17.0 Hematocrit 42.7 % Normal 38.0-48.0 Mean Cell Volume 97.7 fl High 80.0-96.0 Mean Corpuscular HGB 33.0 pg Normal 27.0-33.0 Mean Corpuscular HGB Conc 33.7 g/dL Normal 31.7-36.0 Platelet Count 315 K/uL Normal 155-360 Red Cell Distri Width SD 48.4 fl Normal 36-51 Red Cell Distri Width %CV 13.9 % Normal 11.6-15.8 Mean Platelet Volume 10.1 fL Normal 6.6-10.6 Neut% 52.3 % Normal 33.0-73.0 Lymph % 34.3 % Normal 20.0-42.0 [place] % 10.3 % High 0.0-10.0 Eo% 2.7 % Normal 0.0-6.6 Bas% 0.4 % Normal 0.0-1.1 Neut# 5.72 K/uL Normal 1.8-7.0 Lymph # 3.75 K/uL Normal 1.0-4.0 [place] # 1.13 K/uL High 0.0-0.8 Eos # 0.29 K/uL Normal 0.0-0.5 Baso # 0.04 K/uL Normal 0.0-0.1 Basic Metabolic Panel 12/25/2017 [facility] Glucose 99 mg/dL Normal 74-106 [address] [place] [address] [phone] BUN 25 mg/dL High 7-18 Creatinine 1.0 mg/dL Normal 0.6-1.3 Glom Filtration Rate, Estimate >60 mL/min >60 If >60 mL/min >60 44 BUN/Creat 25.0 ratio Sodium 137 mmol/L Normal 136-145 Potassium 4.3 mmol/L Normal 3.5-5.1 Chloride 101 mmol/L Normal 98-107 Carbon Dioxide 30 mmol/L Normal 21-32 Anion Gap 6 mEq/L Low 8-16 Calcium 9.4 mg/dL Normal 8.5-10.1 Laboratory test 12/25/2017 [facility] CK 216 U/L Normal 39-308 finding [address] [place] [address] [phone] Liver Function 12/25/2017 [facility] Total Protein 7.4 g/dL Normal 6.4-8.2 Tests [address] [place] [address] [phone] Albumin 4.1 g/dL Normal 3.4-5.0 Globulin 3.3 g/dL Normal 1.9-4.3 Alb/Glob 1.2 ratio Bilirubin,Total 0.3 mg/dL Normal 0.2-1.0 Bilirubin,Direct < 0.1 mg/dL Normal 0.0-0.2 Bilirubin,Indirect 0.2 mg/dL Normal 0.0-0.9 Sgot/Ast 22 U/L Normal 15-37 SGPT/Alt 25 U/L Normal 12-78 Alkaline Phosphatase 54 U/L Normal 45-117 LDL Cholesterol 12/25/2017 [facility] Cholesterol 264 mg/dL High <200 45 Profile [address] [place] [address] [phone] Triglycerides 300 mg/dL High <150 46 HDL Cholesterol 44 mg/dL >40 47 LDL-Cholesterol 160 mg/dL < 100 48 Serum or plasma 05/31/2017 N2N/CCD Import Serum or plasma 0 0-3 creatine kinase creatine kinase MB/creatine kinase MB/creatine kinase.total by electrophoresis Serum or plasma 05/31/2017 N2N/CCD Import Serum or plasma 100 97-100 creatine kinase creatine kinase mm/creatine kinase mm/creatine kinase.total by electrophoresis Serum or plasma 05/31/2017 N2N/CCD Import Serum or plasma 197 24-204 creatine kinase creatine kinase measurement (enzym measurement (enzymatic activity/volume) Serum or plasma 05/31/2017 N2N/CCD Import Serum or plasma 0 Not macromolecular macromolecular Observed type 1 creatine type 1 creatine kin kinase/total creatine kinase Serum or plasma 05/31/2017 N2N/CCD Import Serum or plasma 0 Not macromolecular macromolecular Observed type 2 creatine type 2 creatine kin kinase/total creatine kinase Serum or plasma 05/31/2017 N2N/CCD Import Serum or plasma 0.4 0.2-1.0 total bilirubin total bilirubin measurement (mass/ measurement (mass/volume) Serum or plasma 05/31/2017 N2N/CCD Import Serum or plasma 122 <150 triglyceride triglyceride measurement measurement (mass/vol (mass/volume) Sodium SerPl-sCnc 05/31/2017 N2N/CCD Import Sodium SerPl-sCnc 137 136- 145 TSH SerPl-aCnc 05/31/2017 N2N/CCD Import TSH SerPl-aCnc 0.98 0.30-4.20 WBC # Bld Auto 05/31/2017 N2N/CCD Import WBC # Bld Auto 8.4 3.4-10.5 LDL Cholesterol 05/31/2017 [facility] Cholesterol 202 High <200 49, Profile [address] mg/dL 50 [place] [address] [phone] Triglycerides 122 mg/dL <150 51 HDL Cholesterol 60 mg/dL >40 52 LDL-Cholesterol 118 mg/dL < 100 53 Comprehensive 05/31/2017 [facility] Glucose 104 mg/dL Normal 74-106 Metabolic Panel [address] [place], [place] [id number] [phone] BUN 16 mg/dL Normal 7-18 Creatinine 1.0 mg/dL Normal 0.6-1.3 Glom Filtration Rate, Estimate >60 mL/min >60 If >60 mL/min >60 54 BUN/Creat 16.0 ratio Sodium 137 mmol/L Normal 136-145 Potassium 4.2 mmol/L Normal 3.5-5.1 Chloride 102 mmol/L Normal 98-107 Carbon Dioxide 28 mmol/L Normal 21-32 Anion Gap 7 mEq/L Low 8-16 Calcium 9.4 mg/dL Normal 8.5-10.1 Total Protein 7.8 g/dL Normal 6.4-8.2 Albumin 4.5 g/dL Normal 3.4-5.0 Globulin 3.3 g/dL Normal 1.9-4.3 Alb/Glob 1.4 ratio Bilirubin,Total 0.4 mg/dL Normal 0.2-1.0 Sgot/Ast 22 U/L Normal 15-37 SGPT/Alt 38 U/L Normal 12-78 Alkaline Phosphatase 53 U/L Normal 45-117 CBS W/Automated 05/31/2017 [facility] White Blood 8.4 K/uL Normal 3.4-10.[address] [place] [address] [phone] Red Blood Count 4.67 M/uL Normal 4.20-5.80 Hemoglobin 15.3 gm/dL Normal 12.8-17.0 Hematocrit 44.0 % Normal 38.0-48.0 Mean Cell Volume 94.2 fl Normal 80.0-96.0 Mean Corpuscular HGB 32.8 pg Normal 27.0-33.0 Mean Corpuscular HGB Conc 34.8 g/dL Normal 31.7-36.0 Platelet Count 334 K/uL Normal 150-400 Red Cell Distri Width SD 43.6 fl Normal 36-51 Red Cell Distri Width %CV 12.8 % Normal 11.6-15.8 Mean Platelet Volume 9.7 fL Normal 6.6-10.6 Neut% 50.7 % Normal 33.0-73.0 Lymph % 38.2 % Normal 20.0-42.0 [place] % 8.3 % Normal 0.0-10.0 Eo% 2.4 % Normal 0.0-6.6 Bas% 0.4 % Normal 0.0-1.1 Neut# 4.25 K/uL Normal 1.8-7.0 Lymph # 3.19 K/uL Normal 1.0-4.0 [place] # 0.69 K/uL Normal 0.0-0.8 Eos # 0.20 K/uL Normal 0.0-0.5 Baso # 0.03 K/uL Normal 0.0-0.1 Laboratory test 05/31/2017 [facility] Thyroid Stim 0.98 Normal 0.30-4.20 [address] Hormone uIU/mL [place], [place] [id number] [phone] Laboratory test 05/31/2017 [facility] Aldolase 5.0 U/L 3.3-10.[address] [place], [place] [address] [phone] CK 05/31/2017 [facility] CK,Total 197 U/L 24-204 Isoenzymes,Seru [address] [place] [address] [phone] Macro II 0 % Not Observed CK-mm 100 % 97-100 Macro I 0 % Not Observed CK-MB 0 % 0-3 CK-BB 0 % 0 55 Basophils [#/volume] 05/31/2017 N2N/CCD Import Basophils 0.03 0.0-0.1 in Blood by [#/volume] in Blood Automated count by Automated count BUN/Creat SerPl 05/31/2017 N2N/CCD Import BUN/Creat SerPl 16.0 BUN SerPl-mCnc 05/31/2017 N2N/CCD Import BUN SerPl-mCnc 16 7-18 Automated 05/31/2017 N2N/CCD Import Automated 34.8 31.7-36.0 erythrocyte mean erythrocyte mean corpuscular corpuscular hemoglobin hemoglobin concentration measurement (mass/volume) Automated 05/31/2017 N2N/CCD Import Automated 32.8 27.0-33.0 erythrocyte mean erythrocyte mean corpuscular corpuscular hemoglobin hemoglobin (mass per erythrocyte) Aspartate 05/31/2017 N2N/CCD Import Aspartate 22 15-37 aminotransferase aminotransferase [Enzymatic [Enzymatic activity/vol activity/volume] in Serum or Plasma Anion Gap SerPl-sCnc 05/31/2017 N2N/CCD Import Anion Gap 7 Low 8-16 SerPl-sCnc Albumin/Glob SerPl 05/31/2017 N2N/CCD Import Albumin/Glob SerPl 1.4 Albumin SerPl-mCnc 05/31/2017 N2N/CCD Import Albumin SerPl-mCnc 4.5 3.4- 5.0 Alt SerPl-cCnc 05/31/2017 N2N/CCD Import Alt SerPl-cCnc 38 12-78 Alp SerPl-cCnc 05/31/2017 N2N/CCD Import Alp SerPl-cCnc 53 45-117 Basophils/leuk NFr 05/31/2017 N2N/CCD Import Basophils/leuk NFr 0.4 0.0- 1.1 Bld Auto Bld Auto Blood erythrocytes 05/31/2017 N2N/CCD Import Blood erythrocytes 4.67 4.20-5.80 automated count automated count (number/volume) (number/volume) Blood hemoglobin 05/31/2017 N2N/CCD Import Blood hemoglobin 15.3 12.8- 17.0 measurement measurement (mass/volume) (mass/volume) Blood monocytes 05/31/2017 N2N/CCD Import Blood monocytes 0.69 0.0-0.8 automated count automated count (number/volume) (number/volume) Co2 SerPl-sCnc 05/31/2017 N2N/CCD Import Co2 SerPl-sCnc 28 21-32 Calcium SerPl-mCnc 05/31/2017 N2N/CCD Import Calcium SerPl-mCnc 9.4 8.5- 10.1 Chloride SerPl-sCnc 05/31/2017 N2N/CCD Import Chloride SerPl-sCnc 102 98 -107 Creat SerPl-mCnc 05/31/2017 N2N/CCD Import Creat SerPl-mCnc 1.0 0.6-1.3 Eosinophil # Bld 05/31/2017 N2N/CCD Import Eosinophil # Bld 0.20 0.0- 0.5 Auto Auto Eosinophil/leuk NFr 05/31/2017 N2N/CCD Import Eosinophil/leuk NFr 2.4 0.0-6.6 Bld Auto Bld Auto Globulin Ser 05/31/2017 N2N/CCD Import Globulin Ser 3.3 1.9-4.3 Calc-mCnc Calc-mCnc Glucose 05/31/2017 N2N/CCD Import Glucose 104 74-106 [Mass/volume] in [Mass/volume] in Serum or Plasma Serum or Plasma Hct VFr Bld Auto 05/31/2017 N2N/CCD Import Hct VFr Bld Auto 44.0 38.0- 48.0 Lymphocytes 05/31/2017 N2N/CCD Import Lymphocytes 3.19 1.0-4.0 [#/volume] in Blood [#/volume] in Blood by Automated count by Automated count Lymphocytes/leuk NFr 05/31/2017 N2N/CCD Import Lymphocytes/leuk 38.2 20.0-42.0 Bld Auto NFr Bld Auto Serum or plasma 05/31/2017 N2N/CCD Import Serum or plasma 0 0 creatine kinase creatine kinase BB/creatine kinase BB/creatine kinase.total by electrophoresis Serum or plasma 05/31/2017 N2N/CCD Import Serum or plasma 202 High <200 cholesterol cholesterol measurement measurement (mass/volu (mass/volume) Serum or plasma 05/31/2017 N2N/CCD Import Serum or plasma 118 < 100 cholesterol in LDL cholesterol in LDL measurement by measurement by calculation (mass/volume) Serum or plasma 05/31/2017 N2N/CCD Import Serum or plasma 60 >40 cholesterol in HDL cholesterol in HDL measurement (ma measurement (mass/volume) Serum or plasma 05/31/2017 N2N/CCD Import Serum or plasma 5.0 3.3-10.3 aldolase measurement aldolase (enzymatic ac measurement (enzymatic activity/volume) RDW RBC Auto-Rto 05/31/2017 N2N/CCD Import RDW RBC Auto-Rto 12.8 11.6- 15.8 RDW RBC Auto 05/31/2017 N2N/CCD Import RDW RBC Auto 43.6 36-51 Prot SerPl-mCnc 05/31/2017 N2N/CCD Import Prot SerPl-mCnc 7.8 6.4-8.2 Potassium SerPl-sCnc 05/31/2017 N2N/CCD Import Potassium 4.2 3.5-5.1 SerPl-sCnc Platelets [#/volume] 05/31/2017 N2N/CCD Import Platelets 334 150-400 in Blood by [#/volume] in Blood Automated count by Automated count PMV Bld Auto 05/31/2017 N2N/CCD Import PMV Bld Auto 9.7 6.6-10.6 Neutrophils/leuk NFr 05/31/2017 N2N/CCD Import Neutrophils/leuk 50.7 33.0-73.0 Bld Auto NFr Bld Auto Neutrophils # Bld 05/31/2017 N2N/CCD Import Neutrophils # Bld 4.25 1.8- 7.0 Auto Auto Monocytes/leuk NFr 05/31/2017 N2N/CCD Import Monocytes/leuk NFr 8.3 0.0- 10.0 Bld Auto Bld Auto MCV RBC Auto 05/31/2017 N2N/CCD Import MCV RBC Auto 94.2 80.0-96.0 Serum or plasma 03/08/2017 N2N/CCD Import Serum or plasma 6.5 High 0.5- 3.6 creatine kinase MB creatine kinase MB measurement (ma measurement (mass/volume) Laboratory test 03/08/2017 [facility] CK 705 U/L High 39-308 56 finding [address] [place] [address] [phone] CK-MB (Mass) 6.5 ng/ml High 0.5-3.6 Comprehensive 03/08/2017 [facility] Glucose 98 mg/dL Normal 74-106 Metabolic Panel [address] [place] [address] [phone] BUN 13 mg/dL Normal 7-18 Creatinine 0.9 mg/dL Normal 0.6-1.3 Glom Filtration Rate, Estimate >60 mL/min >60 If >60 mL/min >60 57 BUN/Creat 14.4 ratio Sodium 140 mmol/L Normal 136-145 Potassium 4.0 mmol/L Normal 3.5-5.1 Chloride 107 mmol/L Normal 98-107 Carbon Dioxide 28 mmol/L Normal 21-32 Anion Gap 5 mEq/L Low 8-16 Calcium 9.1 mg/dL Normal 8.5-10.1 Total Protein 7.2 g/dL Normal 6.4-8.2 Albumin 3.9 g/dL Normal 3.4-5.0 Globulin 3.3 g/dL Normal 1.9-4.3 Alb/Glob 1.2 ratio Bilirubin,Total 0.4 mg/dL Normal 0.2-1.0 Sgot/Ast 37 U/L Normal 15-37 SGPT/Alt 53 U/L Normal 12-78 Alkaline Phosphatase 44 U/L Low 45-117 CBS W/Automated 03/08/2017 [facility] White Blood 6.5 K/uL Normal 3.4-10.5 Diff [address] [address] [phone] Red Blood Count 4.34 M/uL Normal 4.20-5.80 Hemoglobin 14.3 gm/dL Normal 12.8-17.0 Hematocrit 41.9 % Normal 38.0-48.0 Mean Cell Volume 96.5 fl High 80.0-96.0 Mean Corpuscular HGB 32.9 pg Normal 27.0-33.0 Mean Corpuscular HGB Conc 34.1 g/dL Normal 31.7-36.0 Platelet Count 298 K/uL Normal 150-400 Red Cell Distri Width SD 45.9 fl Normal 36-51 Red Cell Distri Width %CV 13.3 % Normal 11.6-15.8 Mean Platelet Volume 9.2 fL Normal 6.6-10.6 Neut% 57.2 % Normal 33.0-73.0 Lymph % 30.7 % Normal 20.0-42.0 [place] % 8.9 % Normal 0.0-10.0 Eo% 2.9 % Normal 0.0-6.6 Bas% 0.3 % Normal 0.0-1.1 Neut# 3.74 K/uL Normal 1.8-7.0 Lymph # 2.01 K/uL Normal 1.0-4.0 [place] # 0.58 K/uL Normal 0.0-0.8 Eos # 0.19 K/uL Normal 0.0-0.5 Baso # 0.02 K/uL Normal 0.0-0.1 1 I82.402 Z86.79 E72.12 2 Performed at: RN - [facility] [address] [id number] Electronic Technician: Melisa Elmore MD, Phone: [phone] Note: Persistent reduction for 3 months or more in an eGFR <60 mL/min/1.73 m2 defines CKD. Patients with eGFR values >/=60 mL/min/1.73 m2 may also have CKD if evidence of persistent proteinuria is present. The original MDRD equation for estimated GFR is not valid for patients less than 18 years of age. Additional information may be found at www.kdoqi.org. 4 Vitamin D deficiency has been defined by the [place] [employer] and an Endocrine Society practice guideline as a level of serum 25-OH vitamin D less than 20 ng/mL (1,2). The Endocrine Society went on to further define vitamin D insufficiency as a level between 21 and 29 ng/mL (2). 1. IOM ([place] [employer]). 2010. Dietary reference intakes for calcium and D. [place]: The National Academies Press. 2. Missy Juan, Von RAMOS, et al. Evaluation, treatment, and prevention of vitamin D deficiency: an Endocrine Society clinical practice guideline. JCEM. 2010; 96(7):1911-30. Performed at: [address] [id number] Electronic Technician: Melisa Elmore MD, Phone: [phone] 5 Negative: <15 Indeterminate: 15 - 20 Low-Med Positive: >20 - 80 High Positive: >80 6 Negative: <13 Indeterminate: 13 - 20 Low-Med Positive: >20 - 80 High Positive: >80 7 Negative: <12 Indeterminate: 12 - 20 Low-Med Positive: >20 - 80 High Positive: >80 Performed at: [address] [id number] Electronic Technician: Melisa Elmore MD, Phone: [phone] Vitamin D deficiency has been defined by the [place] [employer] and an Endocrine Society practice guideline as a level of serum 25-OH vitamin D less than 20 ng/mL (1,2). The Endocrine Society went on to further define vitamin D insufficiency as a level between 21 and 29 ng/mL (2). 1. IOM ([place] [employer]). 2010. Dietary reference intakes for calcium and D. [place]: The National Academies Press. 2. Missy Juan, Von RAMOS, et al. Evaluation, treatment, and prevention of vitamin D deficiency: an Endocrine Society clinical practice guideline. JCEM. 2010; 96(7):1911-30. Performed at: [facility] [employer] [id number] Electronic Technician: Melisa Elmore MD, Phone: [phone] Note: Persistent reduction for 3 months or more in an eGFR <60 mL/min/1.73 m2 defines CKD. Patients with eGFR values >/=60 mL/min/1.73 m2 may also have CKD if evidence of persistent proteinuria is present. The original MDRD equation for estimated GFR is not valid for patients less than 18 years of age. Additional information may be found at www.kdoqi.org. 10 Performed at: [employer] [address] [id number] Electronic Technician: Melisa Elmore MD, Phone: [phone] I82.402 I26.99 12 Negative: <15 Indeterminate: 15 - 20 Low-Med Positive: >20 - 80 High Positive: >80 13 Negative: <13 Indeterminate: 13 - 20 Low-Med Positive: >20 - 80 High Positive: >80 14 Negative: <12 Indeterminate: 12 - 20 Low-Med Positive: >20 - 80 High Positive: >80 Performed at: [facility] [address] [id number] Electronic Technician: Melisa Elmore MD, Phone: [phone] Results are consistent with the presence of a lupus anticoagulant. NOTE: Only persistent lupus anticoagulants are thought to be of clinical significance. For this reason, repeat testing in 12 or more weeks after an initial positive result should be considered to confirm or refute the presence of a lupus anticoagulant, depending on clinical presentation. Results of lupus anticoagulant tests may be falsely positive in the presence of certain anticoagulant therapies. Performed at: [address] [id number] Electronic Technician: Catalino Munroe MD, Phone: [phone] Result: C677T Single mutation (C677T) identified Interpretation: This individual is heterozygous for the MTHFR C677T variant (one copy). The MTHFR [id number] variant was not identified. This combination of results is not associated with an increased risk of hyperhomocysteinemia, venous thrombosis, coronary artery disease, or recurrent loss. However, hyperhomocysteinemia may also occur due to mutations in enzymes other than MTHFR that are involved in homocysteine metabolism, or arise due to acquired factors. In evaluation of vascular and obstetric risk, consider measuring fasting homocysteine. Other risk factors may be detected through systematic clinical laboratory analysis. Methylenetetrahydrofolate reductase (MTHFR) is a lott enzyme in the folate pathway and is responsible for the metabolism of homocysteine. There are two common variants in the MTHFR gene, c.655c>T (p.[id number]), referred to as C677T, and c.1286A>C (p.Del636Rgw), referred to as [id number]. Individuals homozygous for C677T (two copies of the variant), have decreased activity of the MTHFR enzyme and a predisposition to hyperhomocysteinemia, particularly when deficient in folate. Hyperhomocysteinemia is a risk factor for venous thrombosis and coronary artery disease and is associated with an increased risk of open neural tube defects. The C677T variant does not independently increase risk of these conditions in the absence of hyperhomocysteinemia. The [id number] variant is not associated with elevated homocysteine levels unless a C677T variant is also present; however, the clinical significance of heterozygosity for both C677T and K7577M is controversial. Population data suggest that these two variants are not present on the same chromosome, but rare exceptions have been reported of triple variant MTHFR genotypes (ie. homozygous for one variant and heterozygous for the other). Homozygosity for C677T has an estimated frequency of 10% to 15% in Caucasians and 25% in Hispanics. Additional information: Dietary folic acid, B6 and B12 supplementation has been suggested to lower homocysteine levels in some people. Folic acid supplementation has been shown to reduce the occurrence of neural tube defects. Genetic counselors are available for health care providers to discuss results at [phone]. Methodology: DNA analysis of the MTHFR gene was performed by PCR amplification followed by restriction analysis. The diagnostic sensitivity is >99% for both. Molecular-based testing is highly accurate, but as in any laboratory test, rare diagnostic errors may occur. All test results must be combined with clinical information for the most accurate interpretation. This test was developed and its performance characteristics determined by [employer]. It has not been cleared or approved by the Food and Drug Administration. References: Tesfaye LD, Jose Q. Am J Epidemiol 2000; 151(9):862-877. Ron MM, Navi JA. Arch Pathol Lab Med 2007; 131(6):872-884. Frosst P et al. Aniya Robyn 1995; 10(1):111-113. Amando SE et al. Robyn Med 2013; 15(2):153-156. Gilda C et al. Obstet Gynecol 2011; 118(3):730-740. Irvin B et al. Eur J Epidemiol 2013; 28(8):621-647. Ashley Alcazar, PhD, [facility] Vale Mason, PhD, [facility] Darek WaySCarol, PhD, [facility] Mandy Don, PhD, FACMG Kenneth Griffith, PhD, FACMG Balwinder Ngo, PhD, FACMG Performed at: [facility] [address], [place] [id number] Electronic Technician: Yogi Segura MD, Phone: [phone] 17 SINGLE [id number] MUTATION IDENTIFIED (HETEROZYGOTE) Comment: A point mutation ([id number]) in the factor II (prothrombin) gene is the second most common cause of inherited thrombophilia. The incidence of this mutation in the [place] population is about 2% and in the population it is approximately 0.5%. This mutation is rare in the and population. Being heterozygous for a prothrombin mutation increases the risk for developing venous thrombosis about 2 to 3 times above the general population risk. Being homozygous for the prothrombin gene mutation increases the relative risk for venous thrombosis further, although it is not yet known how much further the risk is increased. In women heterozygous for the prothrombin gene mutation, the use of estrogen containing oral contraceptives increases the relative risk of venous thrombosis about 16 times and the risk of developing cerebral thrombosis is also significantly increased. In the prothrombin gene mutation increases risk for venous thrombosis and may increase risk for stillbirth, placental abruption, pre-eclampsia and growth restriction. If the patient possesses two or more congenital or acquired thrombophilic risk factors, the risk for thrombosis may rise to more than the sum of the risk ratios for the individual mutations. This assay detects only the prothrombin [id number] mutation and does not measure genetic abnormalities elsewhere in the genome. Other thrombotic risk factors may be pursued through systematic clinical laboratory analysis. These factors include the R506Q (Leiden) mutation in the Factor V gene, plasma homocysteine levels, as well as testing for deficiencies of antithrombin III, protein C and protein S. Genetic Counselors are available for health care providers to discuss results at [phone] Methodology: DNA analysis of the Factor II gene was performed by PCR amplification followed by restriction analysis. The diagnostic sensitivity is >99% for both. All the tests must be combined with clinical information for the most accurate interpretation. Molecular-based testing is highly accurate, but as in any laboratory test, diagnostic errors may occur. This test was developed and its performance characteristics determined by [employer]. It has not been cleared or approved by the Food and Drug Administration. Kori SR, et al. Blood. 1996; 88:7346-5327. Maribel SYED. Circulation. 2004; 110:e15-e18. Carmen I, et al. Arterioscler Thromb Vasc Biol. 1999; 19:700-703. Ashley Alcazar, PhD, FACMG Vale Mason, PhD, FAC Trish Butler M.S., PhD, FACMG Mandy Don, PhD, FAC Kenneth Griffith, PhD, FAC Balwinder Ngo, PhD, FAC Performed at: [facility] [address], [place] [id number] Electronic Technician: Yogi Segura MD, Phone: [phone] 18 Result: Negative (no mutation found) Factor V Leiden is a specific mutation (R506Q) in the factor V gene that is associated with an increased risk of venous thrombosis. Factor V Leiden is more resistant to inactivation by activated protein C. As a result, factor V persists in the circulation leading to a mild hyper- coagulable state. The Leiden mutation accounts for 90% - 95% of APC resistance. Factor V Leiden has been reported in patients with deep vein thrombosis, pulmonary embolus, central retinal vein occlusion, cerebral sinus thrombosis and hepatic vein thrombosis. Other risk factors to be considered in the workup for venous thrombosis include the [id number] mutation in the factor II (prothrombin) gene, protein S and C deficiency, and antithrombin deficiencies. Anticardiolipin antibody and lupus anticoagulant analysis may be appropriate for certain patients, as well as homocysteine levels. Contact your local [facility] for information on how to order additional testing if desired. Genetic counselors are available for health care providers to discuss results at [phone] Methodology: DNA analysis of the Factor V gene was performed by allele- specific PCR. The diagnostic sensitivity and specificity is >99% for both. Molecular-based testing is highly accurate, but as in any laboratory test, diagnostic errors may occur. All test results must be combined with clinical information for the most accurate interpretation. This test was developed and its performance characteristics determined by [facility]. It has not been cleared or approved by the Food and Drug Administration. References: Dara Fleming (1995). Clin Lab Med 16:169-186. Ashley Alcazar, PhD, FACMG Vale Mason, PhD, FACMG Darek WayS., PhD, FACMG Mandy Don, PhD, FACMG Kenneth Griffith, PhD, FACMG Balwinder Ngo PhD, FACMG Performed at: - [facility] [address] [facility], [place], [place] [id number] Electronic Technician: Yogi Segura MD, Phone: [phone] 19 m25.571 20 DVT/PE 21 Note: Persistent reduction for 3 months or more in an eGFR <60 mL/min/1.73 m2 defines CKD. Patients with eGFR values >/=60 mL/min/1.73 m2 may also have CKD if evidence of persistent proteinuria is present. The original MDRD equation for estimated GFR is not valid for patients less than 18 years of age. Additional information may be found at www.kdoqi.org. 22 Is patient on heparin protocol? Y Is patient on anticoagulants? Heparin 23 CHECKED CALLED [place] 2[place] [address]/28/18 by [facility] Is patient on heparin protocol? Y Is patient on anticoagulants? Heparin 24 Is patient on heparin protocol? Y Is patient on anticoagulants? Heparin 25 Note: Persistent reduction for 3 months or more in an eGFR <60 mL/min/1.73 m2 defines CKD. Patients with eGFR values >/=60 mL/min/1.73 m2 may also have CKD if evidence of persistent proteinuria is present. The original MDRD equation for estimated GFR is not valid for patients less than 18 years of age. Additional information may be found at www.kdoqi.org. 26 CALLED ARLIN NASH 2S HIGH PTT AT 2317 09/28/18 by [facility] Is patient on heparin protocol? Y Is patient on anticoagulants? Heparin 27 CHECKED CALLED ARLIN THOMAS 2S HIGH PTT AT 201509/27/18 by [facility] Is patient on heparin protocol? Y 28 Tests: PT/PTT, INR Instructions: STARTING ON HEPARIN 29 STARTING ON HEPARIN 30 Tests: PSA Instructions: 31 POSSIBLE BLOOD CLOT L LEG 32 Note: Persistent reduction for 3 months or more in an eGFR <60 mL/min/1.73 m2 defines CKD. Patients with eGFR values >/=60 mL/min/1.73 m2 may also have CKD if evidence of persistent proteinuria is present. The original MDRD equation for estimated GFR is not valid for patients less than 18 years of age. Additional information may be found at www.kdoqi.org. 33 0.0 - 0.045 ng/mL: Normal 0.046 - 0.5 ng/mL: Suggestive 0.6 - 1.5 ng/mL: Consistent 34 <=0.49 ug/mL - Low likelihood of DIC, DVT or Pulmonary Embolism >0.49 ug/mL - Additional testing should be done to rule out DIC, DVT, or Pulmonary embolism as clinically indicated. ([facility] has established a 97.89% negative predictive value for thrombotic disease when a cutoff value of 0.5 ug/mL is used.) 35 THIS ASSAY IS NOT INTENDED A CANCER SCREENING TEST The concentration of PSA in a given specimen, determined with assays from different manufacturers, can vary due to differences in assay methods and reagent specificity. Values obtained from different assay methods cannot be used interchangeably. Method: [employer] [place] Chemiluminescent immunoassay. 36 M25.562,E83.42,R74.8 37 Note: Persistent reduction for 3 months or more in an eGFR <60 mL/min/1.73 m2 defines CKD. Patients with eGFR values >/=60 mL/min/1.73 m2 may also have CKD if evidence of persistent proteinuria is present. The original MDRD equation for estimated GFR is not valid for patients less than 18 years of age. Additional information may be found at www.kdoqi.org. 38 LEFT KNEE INJURY 3 WEEKS AGO,CRAMPING L THIGH/BACK 39 Negative <0.91 Equivocal 0.91 - 1.09 Positive >1.09 Performed at: RN - [facility] [address] [id number] Electronic Technician: Melisa Elmore MD, Phone: [phone] 40 Note: Persistent reduction for 3 months or more in an eGFR <60 mL/min/1.73 m2 defines CKD. Patients with eGFR values >/=60 mL/min/1.73 m2 may also have CKD if evidence of persistent proteinuria is present. The original MDRD equation for estimated GFR is not valid for patients less than 18 years of age. Additional information may be found at www.kdoqi.org. 41 E78.5 I10 R35.1 42 THIS ASSAY IS NOT INTENDED A CANCER SCREENING TEST The concentration of PSA in a given specimen, determined with assays from different manufacturers, can vary due to differences in assay methods and reagent specificity. Values obtained from different assay methods cannot be used interchangeably. Method: [employer] [place] Chemiluminescent immunoassay. 43 Instrument flagged sample for slide review. Less than 10% Bands seen, no other immature WBC's seen. RBC morphology essentially normal. Platelet estimate=NORMAL 44 Note: Persistent reduction for 3 months or more in an eGFR <60 mL/min/1.73 m2 defines CKD. Patients with eGFR values >/=60 mL/min/1.73 m2 may also have CKD if evidence of persistent proteinuria is present. The original MDRD equation for estimated GFR is not valid for patients less than 18 years of age. Additional information may be found at www.kdoqi.org. 45 Reference Guidelines*: Desirable: ........... < 200 mg/dL Borderline High: ..... 200-239 mg/dL High: ................ >=240 mg/dL * The National Cholesterol Education Program (NCEP) 46 Reference Guidelines*: Normal: ............. < 150 mg/dL Borderline High: .... 150-199 mg/dL High: ............... 200-499 mg/dL Very High: .......... > 500 mg/dL * Source: National Cholesterol Education Program (NCEP) 47 Reference Guidelines*: Low HDL: ..... < 40 mg/dL Normal: ..... 40-60 mg/dL Desirable: ... > 60 mg/dL *The National Cholesterol Education Program(NCEP) 48 Reference Guidelines*: Optimal:........... <100 mg/dL Near Optimal....... 100-129 mg/dL Borderline High.... 130-159 mg/dL High............... 160-189 mg/dL Very High.......... >=190 mg/dL * Source: National Cholesterol Education Program (NCEP) 49 E78.5 R10.9 R74.8 50 Reference Guidelines*: Desirable: ........... < 200 mg/dL Borderline High: ..... 200-239 mg/dL High: ................ >=240 mg/dL * The National Cholesterol Education Program (NCEP) 51 Reference Guidelines*: Normal: ............. < 150 mg/dL Borderline High: .... 150-199 mg/dL High: ............... 200-499 mg/dL Very High: .......... > 500 mg/dL * Source: National Cholesterol Education Program (NCEP) 52 Reference Guidelines*: Low HDL: ..... < 40 mg/dL Normal: ..... 40-60 mg/dL Desirable: ... > 60 mg/dL *The National Cholesterol Education Program(NCEP) 53 Reference Guidelines*: Optimal:........... <100 mg/dL Near Optimal....... 100-129 mg/dL Borderline High.... 130-159 mg/dL High............... 160-189 mg/dL Very High.......... >=190 mg/dL * Source: National Cholesterol Education Program (NCEP) 54 Note: Persistent reduction for 3 months or more in an eGFR <60 mL/min/1.73 m2 defines CKD. Patients with eGFR values >/=60 mL/min/1.73 m2 may also have CKD if evidence of persistent proteinuria is present. The original MDRD equation for estimated GFR is not valid for patients less than 18 years of age. Additional information may be found at www.kdoqi.org. 55 Performed at: RN - [facility] [address] [id number] Electronic Technician: Melisa Elmore MD, Phone: [phone] 56 R1.8 57 Note: Persistent reduction for 3 months or more in an eGFR <60 mL/min/1.73 m2 defines CKD. Patients with eGFR values >/=60 mL/min/1.73 m2 may also have CKD if evidence of persistent proteinuria is present. The original MDRD equation for estimated GFR is not valid for patients less than 18 years of age. Additional information may be found at www.kdoqi.org. Procedures Date Code Description Status 01/17/2019 37001 Eye Exam New Patient Comprehensive Completed 06/01/2018 15662 Arthroscopy w/meniscectomy including meniscal shaving Completed 05/25/2018 94713 EKG-Tracing And Report Completed 09/14/2017 71675 Colonoscopy Completed 09/14/2017 51719 EGD With Biopsy Completed 09/14/2017 [id number] Colonoscopy Completed 03/10/2017 88289 Cholecystectomy with cholangiography Completed 03/09/2017 65594 Echocardiogram Complete Completed Encounters Type Date Location Provider Dx Diagnosis Office Visit 04/10/2019 Family Medicine Dorothy Amor FNP E78.5 Hyperlipidemia, 2:15p [address] unspecified F41.9 Anxiety disorder, unspecified R25.2 Cramp and spasm I10 Essential (primary) hypertension 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 Office Visit 02/27/2019 11:00a Family Medicine Family Nurse Z11.[address] screening for respiratory tuberculosis Office Visit 12/31/2018 10:00a Family Medicine Dorothy Amor, I10 Essential (primary) [address] [employer] hypertension E78.5 Hyperlipidemia, unspecified F41.9 Anxiety disorder, unspecified R25.2 Cramp and spasm Z01.00 Encounter for exam of eyes and vision w/o abnormal findings Office Visit 11/20/2018 2:00p Oncology Office Damien, I26.99 Other pulmonary Kim, DO embolism without acute cor pulmonale I82.402 Acute embolism and thombos unsp deep veins of l low extrem E72.12 Methylenetetrahydrofolate reductase deficiency Office Visit 11/13/2018 1:30p Primary Care [place], I10 Essential ( primary) Office Kim [facility] hypertension I82.402 Acute embolism and thombos unsp deep veins of l low extrem E78.5 Hyperlipidemia, unspecified F41.9 Anxiety disorder, unspecified Office Visit 11/07/2018 8:30a Oncology Office Damien, I26.99 Other pulmonary Kim, DO embolism without acute cor pulmonale I82.402 Acute embolism and thombos unsp deep veins of l low extrem Office Visit 10/31/2018 11:15a Primary Care Antonella, M25.571 Pain in right Office MARY ANN Tapia ankle and joints of right foot Office Visit 10/02/2018 1:30p Primary Care Dylan, I82.402 Acute embolism Office Kim [facility] and thombos unsp deep veins of l low extrem I26.99 Other pulmonary embolism without acute cor pulmonale I10 Essential (primary) hypertension R25.2 Cramp and spasm Office Visit 08/14/2018 10:15a Primary Care Dylan, I10 Essential ( primary) Office Kim [facility] hypertension F41.9 Anxiety disorder, unspecified Office Visit 05/25/2018 11:00a Primary Care Dylan Z01.818 Encounter for other Office Kim [facility] preprocedural examination M23.222 Derang of post horn of medial mensc d/t old tear/inj, l knee Office Visit 05/17/2018 Orthopaedic Penny, M17.12 Unilateral primary 10:45a Office MD Danisha osteoarthritis, left knee M23.222 Derang of post horn of medial mensc d/t old tear/inj, l knee Office Visit 05/14/2018 Orthopaedic Ruben, M17.12 Unilateral primary 10:15a Office MARY ANN Loco osteoarthritis, left knee S83.412A Sprain of medial collateral ligament of left knee, init M23.222 Derang of post horn of medial mensc d/t old tear/inj, l knee Office Visit 04/30/2018 Orthopaedic Ruben, M17.12 Unilateral primary 2:30p Office MARY ANN Loco osteoarthritis, left knee M23.8x2 Other internal derangements of left knee M17.12 Unilateral primary osteoarthritis, left knee Office Visit 04/27/2018 9:45a Primary Care Kim Richardson, M25.562 Pain in left Office [facility] knee R74.8 Abnormal levels of other serum enzymes Office Visit 12/20/2017 9:30a Primary Care Dylan, I10 Essential ( primary) Office Kim [facility] hypertension E78.5 Hyperlipidemia, unspecified F41.9 Anxiety disorder, unspecified Office Visit 09/13/2017 11:00a Primary Care Dylan F41.9 Anxiety disorder, Office Kim [facility] unspecified Office Visit 09/01/2017 1:15p LEILA Flores MD R14.0 Abdominal distension (gaseous) R12 Heartburn Z12.11 Encounter for screening for malignant neoplasm of colon R63.4 Abnormal weight loss K76.0 Fatty (change of) liver, not elsewhere classified Office Visit 07/26/2017 9:00a Primary Care Dylan, G47.00 Insomnia, Office Kim [facility] unspecified R14.0 Abdominal distension (gaseous) Office Visit 06/12/2017 10:30a Primary Care Mariely Brooks G47.00 Insomnia , Office PEDRO Murillo unspecified I10 Essential (primary) hypertension Office Visit 06/05/2017 11:00a Primary Care Mariely Brooks R74.8 Abnormal levels Office PEDRO Murillo of other serum enzymes K57.30 Dvrtclos of lg int w/o perforation or abscess w/o bleeding E87.6 Hypokalemia K76.0 Fatty (change of) liver, not elsewhere classified E78.5 Hyperlipidemia, unspecified K80.80 Other cholelithiasis without obstruction Z12.11 Encounter for screening for malignant neoplasm of colon Office Visit 03/08/2017 8:30a Surgical Office [place], R10.9 Unspecified Abdon, abdominal pain ,FACS Office Visit 03/06/2017 11:30a Primary Care Mariely Brooks R10.12 Left upper Office PEDRO Murillo quadrant pain K57.30 Dvrtclos of lg int w/o perforation or abscess w/o bleeding E87.6 Hypokalemia K76.0 Fatty (change of) liver, not elsewhere classified E78.5 Hyperlipidemia, unspecified K02.3 Arrested dental caries Plan of Treatment Future Appointment(s):07/11/2019 8:30 am - Dorothy Amor FNP at [facility] RD04/10/2019 - Dorothy Amor FNPE78.5 Hyperlipidemia, unspecifiedComments:Will check lipids by next office visit - cannot tolerate statins and insurance won't cover fish oil so will work on dietary changes/ improvement.Follow up:3 mo chronic brjkkkvyjzB59.9 Anxiety disorder, unspecifiedComments:Well controlled on current regimen. Call for worsening.R25.2 Cramp and spasmComments:Continue using cyclobenzaprine as needed for spasms and cramping.I10 Essential (primary) hypertensionComments: Continue current medications for HTN.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Comments:C/w omeprazole and keep f/u with Technical Analyst.
--- OUTSIDE RECORDS SUMMARY | 2019-05-15 07:47 | XMS REPORT | Continuity of Care Document ---
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 Deep venous thrombosis Indira Richardsonuzma [facility] Onset: 09/27/2018 Note: LLE 09/2018 Pulmonary embolism Kim Richardson [facility] Onset: 09/27/2018 Note: 09/2018 Methylenetetrahydrofolate reductase deficiency Kim Quezada DO Onset: Vitamin B deficiency Kim Quezada DO Onset: 02/18/2019 Vitamin D deficiency Kim Quezada DO Onset: 02/18/2019 Inactive Problems Weight decreased Rolando Flores MD [...] Work Status Currently Working Work Status Employed [employer] Right-handed Tobacco Use Start: Unknown [...] 1 cap by mouth 6caps Boufal, 02/18/2019 [id number] Capsules every week DO Kim Eliquis one tablet by 60tabs Dorothy Amor, 09/29/2018 5mg Tablets mouth twice a STAFF MECHANICAL ENGINEER day Clonazepam take 1/2 to 1 60tabs Dorothy Amor, 11/17/2017 1mg Tablets tablet by mouth STAFF MECHANICAL ENGINEER twice daily as needed for anxiety/ panic episode, maximum daily dose=2, Reference #: [id number] Paroxetine HCL take one tablet 90tabs Dorothy Amor, 08/16/2017 10mg Tablets by mouth every STAFF MECHANICAL ENGINEER morning Clonidine HCL take one tablet 30tabs Dorothy Amor, 07/26/2017 0.1mg Tablets by mouth at STAFF MECHANICAL ENGINEER bedtime as needed Hydroxyzine HCL Take One To Two 60tabs G47.00 Dorothy Amor, 07/26/2017 25mg Tablets Tablets By STAFF MECHANICAL ENGINEER Mouth AT Bedtime as Needed For Insomnia Maximum Daily Dose=2 Losartan Potassium take one tablet 90tabs Dorothy Amor, 50mg Tablets by mouth every STAFF MECHANICAL ENGINEER day Omeprazole take one 90caps Dorothy Amor, 40mg Capsules DR capsule by STAFF MECHANICAL ENGINEER mouth every day Cyclobenzaprine HCL take one tablet 270tabs Dorothy Amor, 10mg Tablets by mouth three STAFF MECHANICAL ENGINEER times a day as needed Hydrochlorothiazide take one tablet 90tabs Cale, 25mg Tablets by mouth every Jaime, M.D. day History Medications Folbee 1 tabl by mouth 30tabs Bojose, 02/18/2019 - 2.5-25-1mg every day DO Kim 04/10/2019 Tablets Lovaza 2 caps by mouth 360caps E78.5 Jaime Madsen, 11/20/2018 - 1gm Capsules twice a day M.D. 11/22/2018 Vascepa 2 caps by mouth 120caps E78.5 Jaime Madsen, 11/13/2018 - 1gm Capsules twice a day M.D. 11/20/2018 Cephalexin 1 po tid 30caps Daphnie Winston, 11/02/2018 - 500mg MD 11/07/2018 Capsules Prednisone 1 tab by mouth 10tabs M25.571 Daphnie Winston, 10/31/2018 - 20mg twice a day MD 11/05/2018 Tablets Colchicine 2 po with first 30caps M25.571 Daphnie Winston, 10/31/2018 - 0.6mg dose, then 1 po [...] Citrate 1 bottle po x one 296ml Z12.11 Rolando Flores MD 09/01/2017 - as directed 12/20/2017 1.745GM/30ML Solution Paroxetine HCL ER 1 by mouth every 30tabs Jaime Madsen, 07/26/2017 - Am M.D. 08/16/2017 12.5mg Tablets ER 24HR Mirtazapine 1 at hs prn G47.00 Jaime Madsen, 07/05/2017 - 15mg M.D. 07/26/2017 Tablets Belsomra 1 tablet by mouth 30tabs Liborio Madsenan, 07/04/2017 - 10mg Tablets every night at M.D. Unknown bedtime as needed Trazodone HCL take one to two 180tabs Albin Madsenshan, 07/03/2017 - 50mg tablets by mouth M.D. 07/05/2017 Tablets at bedtime Mirtazapine 1/2 -1 tablet by 30tabs G47.00 MadsenAlbin tuckershan, 06/12/2017 - 15mg mouth at at M.D. 07/03/2017 Tablets bedtime Amoxicillin 1 by mouth three 21caps K02.3 MadsenLiborio tuckeran, 03/06/2017 - 500mg times a day x 7 M.D. 03/27/2017 Capsules days Probiotic 1-2 capsules by 90caps K02.3 MadsenAlbinJaime, 03/06/2017 - Acidophilus mouth daily x 10 M.D. Unknown Capsules days Naproxen take one tablet 180tabs MadsenAlbin tuckershan, - 500mg by mouth with M.D. 10/02/2018 Tablets food, twice a day as needed Atorvastatin Calcium take one tablet 90tabs Albin Madsenshan, - by mouth every M.D. 04/27/2018 20mg [...] kg/m2 BSA (Body Surface Area) 2.21 m2 [place] body weight in kilograms 70 kg O2 [...] kg/m2 BSA (Body Surface Area) 2.23 m2 [place] body weight in kilograms 70 kg O2 [...] kg/m2 BSA (Body Surface Area) 2.19 m2 [place] body weight in kilograms 70 kg O2 [...] Test Result H/L Range Note Homocyst(E)I 04/01/2019 [facility] Homocyst(e)in 12.3 umol/L 0.0-15.0 1, 2 ne, P/S [address] e, P/S [place], [place] [id number] [phone] CBC 04/01/2019 [facility] White Blood 6.8 K/uL Normal 3.4-10.5 W/Automated [address] Count Diff [place], [place] [id number] [phone] Red Blood Count 4.60 M/uL Normal 4.20-5.80 [...] 33.0-73.0 Lymph % 33.3 % Normal 20.0-42.0 Coos % 10.0 % Normal 0.0-10.0 Eo% 2.5 % Normal 0.0-6.6 Bas% 0.6 % Normal 0.0-1.1 Immature Grans 0.4 % Normal 0.0-5.0 NRBC % 0.4 /100WBC < 10/ 100 WBC Neut# 3.63 K/uL Normal 1.8-7.0 Lymph # 2.27 K/uL Normal 1.0-4.0 Coos # 0.68 K/uL Normal 0.0-0.8 Eos # 0.17 K/uL Normal 0.0-0.5 Baso # 0.04 K/uL Normal 0.0-0.1 Immature Grans Absolute 0.03 K/uL NRBC # 0.03 K/uL Comprehensive Metabolic 04/01/2019 [facility] Glucose 113 mg/dL High 74-106 Panel [address] [place] [address] [phone] BUN 18 mg/dL Normal 7-18 Creatinine 1.1 [...] U/L Low 45-117 Vitamin B12 And 04/01/2019 [facility] Vitamin B12 438 pg/mL Normal 193-[address] [place] [address] [phone] Folic Acid 19.9 ng/mL High 3.1-17.5 Laboratory 04/01/2019 [facility] Vitamin 25.8 Low 30.0-100.0 4 test finding [address] D,25-Hydroxy ng/[place] [address] [phone] Iron-Tibc-%Sat 04/01/2019 [facility] Serum Iron 147 Normal 65-[address] g/[place] [address] [phone] Total Iron Binding Capacity 304 g/dL Normal 250-450 Transferrin %Saturation 48 % Normal 12-57 Laboratory test 04/01/2019 [facility] Ferritin 176 Normal 26-[address] ng/[place] [address] [phone] Anticardiolipin AB 02/15/2019 [facility] Anticardiolipin 20 High 0-14 5 Iga/Igg/Igm [address] Igg GPLU/[place] [address] [phone] Anticardiolipin Igm, Quant 13 MPLU/mL High 0-12 6 Anticardiolipin Iga < 9 APLU/mL 0-11 7 Laboratory test 02/15/2019 [facility] Ferritin 205 ng/mL Normal 26-[address] [place] [address] [phone] Iron-Tibc-%Sat 02/15/2019 [facility] Serum Iron 134 g/dL Normal 65-[address] [place] [address] [phone] Total Iron Binding Capacity 339 g/dL Normal 250-450 Transferrin %Saturation 40 % Normal 12-57 Laboratory 02/15/2019 [facility] Vitamin 21.1 Low 30.0-100.0 8 test finding [address] D,25-Hydroxy ng/[place] [address] [phone] Vitamin B12 02/15/2019 [facility] Vitamin B12 462 Normal 193-[address] pg/[place] [address] [phone] Folic Acid 16.8 ng/mL Normal 3.1-17.5 Comprehensive 02/15/2019 [facility] Glucose 104 mg/dL Normal 74-106 Metabolic Panel [address] [place] [address] [phone] BUN 23 mg/dL High 7-18 Creatinine 1.1 [...] 46 U/L Normal 45-117 CBC W/Automated 02/15/2019 [facility] White Blood 7.4 K/uL Normal 3.4-10.[address] [place] [address] [phone] Red Blood Count 4.75 M/uL Normal 4.20-5.80 [...] 33.0-73.0 Lymph % 36.5 % Normal 20.0-42.0 Coos % 10.1 % High 0.0-10.0 Eo% 2.3 % Normal 0.0-6.6 Bas% 0.5 % Normal 0.0-1.1 Immature Grans 0.4 % Normal 0.0-5.0 NRBC % 0.0 /100WBC < 10/ 100 WBC Neut# 3.72 K/uL Normal 1.8-7.0 Lymph # 2.71 K/uL Normal 1.0-4.0 Coos # 0.75 K/uL Normal 0.0-0.8 Eos # 0.17 K/uL Normal 0.0-0.5 Baso # 0.04 K/uL Normal 0.0-0.1 Immature Grans Absolute 0.03 K/uL NRBC # 0.00 K/uL Homocyst(E)Ine, 02/15/2019 [facility] Homocyst(e)ine, 14.0 0.0-15.0 10 P/S [address] P/S umol/[place] [address] [phone] Laboratory test 11/07/2018 [facility] DRVVT Mix 50.0 High 0.0-47.0 [address] [place] [address] [phone] DRVVT Confirm 1.4 ratio High 0.8-1.2 Anticardiolipin AB 11/07/2018 [facility] Anticardiolipin 26 High 0-14 12 Iga/Igg/Igm [address] Igg GPLU/[place] [address] [phone] Anticardiolipin Igm, Quant 14 MPLU/mL High 0-12 13 Anticardiolipin Iga < 9 APLU/mL 0-11 14 Lupus Anticoagulant Reflex 11/07/2018 [facility] PTT-LA 34.7 sec 0.0-51.[address] [place] [address] [phone] DRVVT 64.9 sec High 0.0-47.0 Note: Comment: . 15 Methylenetetrahydrofolate 11/07/2018 [facility] MTHFR,Dna (SEE [address] Analysis NOTE) [place] [address] [phone] Factor II Dna Analysis 11/07/2018 [facility] Factor II, (SEE Abnormal [address] Dna NOTE) [place] [address] Analysis [phone] Factor V Leiden Mutation 11/07/2018 [facility] Factor V (SEE [address] Leiden NOTE) [place] [address] [phone] CBC W/Automated Diff 10/31/2018 [facility] White Blood 11.2 High [address] Count K/[place] [address] 4 [phone] - 1 0 . 5 Red Blood [...] 33.0-73.0 Lymph % 25.1 % Normal 20.0-42.0 Coos % 10.8 % High 0.0-10.0 Eo% 2.1 % Normal 0.0-6.6 Bas% 0.3 % Normal 0.0-1.1 Neut# 6.89 K/uL Normal 1.8-7.0 Lymph # 2.80 K/uL Normal 1.0-4.0 Coos # 1.20 K/uL High 0.0-0.8 Eos # 0.23 K/uL Normal 0.0-0.5 Baso # 0.03 K/uL Normal 0.0-0.1 Laboratory test 10/31/2018 [facility] Uric Acid 5.8 mg/dL Normal 3.5-7.[address] [place] [address] [phone] CBC 09/29/2018 [facility] White 9.3 K/uL Normal 3.4-10.[address] [place] [address] Count [phone] Red Blood Count 4.78 M/uL Normal 4.20-5.80 [...] fL Normal 6.6-10.6 Basic Metabolic Panel 09/29/2018 [facility] Glucose 106 mg/dL Normal 74-106 [address] [place] [address] [phone] BUN 17 mg/dL Normal 7-18 Creatinine 1.0 mg/dL Normal 0.6-1.3 Glom Filtration Rate, Estimate >60 mL/min >60 If >60 mL/min >60 21 BUN/Creat 17.0 ratio Sodium 138 mmol/L Normal 136-145 Potassium 3.7 mmol/L Normal 3.5-5.1 Chloride 101 mmol/L Normal 98-107 Carbon Dioxide 30 mmol/L Normal 21-32 Anion Gap 7 mEq/L Low 8-16 Calcium 9.2 mg/dL Normal 8.5-10.1 Laboratory 09/29/2018 [facility] Act 64.9 High 23.4-35.0 22 test finding [address] [place] [address] Thrombo [phone] Time Laboratory 09/28/2018 [facility] Act 128.5 Critical 23.4-35.0 23 test finding [address] [place] [place] [address] Thrombo [phone] Time Laboratory 09/28/2018 [facility] Act 63.4 High 23.4-35.0 24 test finding [address] [place] [address] Thrombo [phone] Time Basic 09/28/2018 [facility] Glucose 133 mg/dL High 74-[address] [place] [address] [phone] BUN 16 mg/dL Normal 7-18 Creatinine 1.1 mg/dL Normal 0.6-1.3 Glom Filtration Rate, Estimate >60 mL/min >60 If >60 mL/min >60 25 BUN/Creat 14.5 ratio Sodium 137 mmol/L Normal 136-145 Potassium 3.5 mmol/L Normal 3.5-5.1 Chloride 100 mmol/L Normal 98-107 Carbon Dioxide 28 mmol/L Normal 21-32 Anion Gap 9 mEq/L Normal 8-16 Calcium 9.1 mg/dL Normal 8.5-10.1 CBC W/Automated 09/28/2018 [facility] White Blood 8.3 K/uL Normal 3.4-10.[address] [place] [address] [phone] Red Blood Count 4.76 M/uL Normal 4.20-5.80 [...] 33.0-73.0 Lymph % 34.4 % Normal 20.0-42.0 Coos % 7.0 % Normal 0.0-10.0 Eo% 7.0 % High 0.0-6.6 Bas% 0.5 % Normal 0.0-1.1 Neut# 4.25 K/uL Normal 1.8-7.0 Lymph # 2.86 K/uL Normal 1.0-4.0 Coos # 0.58 K/uL Normal 0.0-0.8 Eos # 0.58 K/uL High 0.0-0.5 Baso # 0.04 K/uL Normal 0.0-0.1 Laboratory 09/28/2018 [facility] Act 42.2 High 23.4-35.0 test finding [address] [place] [address] Thrombo [phone] Time Laboratory 09/28/2018 [facility] Act 137.4 Critical 23.4-35.0 26 test finding [address] [place] [place] [address] Thrombo [phone] Time Laboratory 09/27/2018 [facility] Act > 150.0 Critical 23.4-35.0 27 test finding [address] [place] [place] [address] Thrombo [phone] Time Aot Request 09/27/2018 [facility] Aot Test(s) [address] [place] [place] [address] [phone] Tests to be added: PT/PTT, INR Instructions: STARTING ON HEPA <SEE NOTE> 29 Aot Request 09/27/2018 [facility] Aot Request Test(s) added [address] [place] [address] [phone] Tests to be added: PSA Comprehensive 09/27/2018 [facility] Glucose 96 mg/dL Normal 74-106 31 Metabolic Panel [address] [place] [address] [phone] BUN 14 mg/dL Normal 7-18 Creatinine 1.2 [...] U/L Normal 45-117 Laboratory test finding 09/27/2018 [facility] NT-proBNP 30.0 pg/mL <[address] [place] [address] [phone] Troponin-I < 0.015 ng/mL 33 CBC W/Automated 09/27/2018 [facility] White Blood 11.6 K/uL High 3.4-10.[address] [place] [address] [phone] Red Blood Count 4.80 M/uL Normal 4.20-5.80 [...] 33.0-73.0 Lymph % 29.7 % Normal 20.0-42.0 Coos % 8.1 % Normal 0.0-10.0 Eo% 5.6 % Normal 0.0-6.6 Bas% 0.5 % Normal 0.0-1.1 Neut# 6.48 K/uL Normal 1.8-7.0 Lymph # 3.43 K/uL Normal 1.0-4.0 Coos # 0.93 K/uL High 0.0-0.8 Eos # 0.65 K/uL High 0.0-0.5 Baso # 0.06 K/uL Normal 0.0-0.1 Laboratory 09/27/2018 [facility] D-Dimer, 6.72 Critical 34 test finding [address] Quantitative ug/mL high [place], [place] [address] [phone] Prostate Specific Antigen 1.03 ng/mL < 4.0 35 Laboratory test 04/27/2018 [facility] Magnesium 2.3 mg/dL Normal 1.8-2.4 36 finding [address] [place] [address] [phone] Basic Metabolic 04/27/2018 [facility] Glucose 87 mg/dL Normal 74-106 Panel [address] [place] [address] [phone] BUN 21 mg/dL High 7-18 Creatinine 1.0 mg/dL Normal 0.6-1.3 Glom Filtration Rate, Estimate >60 mL/min >60 If >60 mL/min >60 37 BUN/Creat 21.0 ratio Sodium 138 mmol/L Normal 136-145 Potassium 4.4 mmol/L 3.5-5.1 Chloride 101 mmol/L Normal 98-107 Carbon Dioxide 30 mmol/L Normal 21-32 Anion Gap 7 mEq/L Low 8-16 Calcium 9.5 mg/dL Normal 8.5-10.1 Laboratory test 04/27/2018 [facility] CK 268 U/L Normal 39-308 finding [address] [place], [place] [address] [phone] Laboratory test 04/20/2018 [facility] Magnesium 1.9 mg/dL Normal 1.8-2.4 38 finding [address] [place], [place] [address] [phone] CK 671 U/L High 39-308 Lyme Total AB/Reflex To WB < 0.91 ISR 0.00-0.90 39 Comprehensive Metabolic 04/20/2018 [facility] Glucose 120 mg/dL High 74-106 Panel [address] [place], [place] [address] [phone] BUN 25 mg/dL High 7-18 Creatinine 1.2 [...] 61 U/L Normal 45-117 CBS W/Automated 04/20/2018 [facility] White Blood 9.1 K/uL Normal 3.4-10.[address] [place] [address] [phone] Red Blood Count 4.55 M/uL Normal 4.20-5.80 [...] 33.0-73.0 Lymph % 32.7 % Normal 20.0-42.0 Coos % 10.0 % Normal 0.0-10.0 Eo% 2.4 % Normal 0.0-6.6 Bas% 0.4 % Normal 0.0-1.1 Neut# 4.93 K/uL Normal 1.8-7.0 Lymph # 2.96 K/uL Normal 1.0-4.0 Coos # 0.91 K/uL High 0.0-0.8 Eos # 0.22 K/uL Normal 0.0-0.5 Baso # 0.04 K/uL Normal 0.0-0.1 Laboratory test 12/25/2017 [facility] Prostate 0.83 ng/mL < 4.0 41, [address] [place] [address] Antigen [phone] Slide Review (SEE NOTE) 43 CBS W/Automated 12/25/2017 [facility] White Blood 10.9 K/uL High 3.4-10.[address] Count [place], [place] [address] [phone] Red Blood Count 4.37 M/uL Normal 4.20-5.80 [...] 33.0-73.0 Lymph % 34.3 % Normal 20.0-42.0 Coos % 10.3 % High 0.0-10.0 Eo% 2.7 % Normal 0.0-6.6 Bas% 0.4 % Normal 0.0-1.1 Neut# 5.72 K/uL Normal 1.8-7.0 Lymph # 3.75 K/uL Normal 1.0-4.0 Coos # 1.13 K/uL High 0.0-0.8 Eos # 0.29 K/uL Normal 0.0-0.5 Baso # 0.04 K/uL Normal 0.0-0.1 Basic Metabolic Panel 12/25/2017 [facility] Glucose 99 mg/dL Normal 74-[address] [place] [address] [phone] BUN 25 mg/dL High 7-18 Creatinine 1.0 mg/dL Normal 0.6-1.3 Glom Filtration Rate, Estimate >60 mL/min >60 If >60 mL/min >60 44 BUN/Creat 25.0 ratio Sodium 137 mmol/L Normal 136-145 Potassium 4.3 mmol/L Normal 3.5-5.1 Chloride 101 mmol/L Normal 98-107 Carbon Dioxide 30 mmol/L Normal 21-32 Anion Gap 6 mEq/L Low 8-16 Calcium 9.4 mg/dL Normal 8.5-10.1 Laboratory test 12/25/2017 [facility] CK 216 U/L Normal 39-308 finding [address] [place] [address] [phone] Liver Function 12/25/2017 [facility] Total Protein 7.4 g/dL Normal 6.4-8.2 Tests [address] [place] [address] [phone] Albumin 4.1 g/dL Normal 3.4-5.0 Globulin 3.3 g/dL Normal 1.9-4.3 Alb/Glob 1.2 ratio Bilirubin,Total 0.3 mg/dL Normal 0.2-1.0 Bilirubin,Direct < 0.1 mg/dL Normal 0.0-0.2 Bilirubin,Indirect 0.2 mg/dL Normal 0.0-0.9 Sgot/Ast 22 U/L Normal 15-37 SGPT/Alt 25 U/L Normal 12-78 Alkaline Phosphatase 54 U/L Normal 45-117 LDL Cholesterol 12/25/2017 [facility] Cholesterol 264 mg/dL High <200 45 Profile [address] [place] [address] [phone] Triglycerides 300 mg/dL High <150 46 HDL [...] 49, Profile [address] mg/dL 50 [place], [place] [id number] [phone] Triglycerides 122 mg/dL <150 51 HDL Cholesterol 60 mg/dL >40 52 LDL-Cholesterol 118 mg/dL < 100 53 Comprehensive 05/31/2017 [facility] Glucose 104 mg/dL Normal 74-106 Metabolic Panel [address] [place], [place] [address] [phone] BUN 16 mg/dL Normal 7-18 Creatinine 1.0 [...] 53 U/L Normal 45-117 CBS W/Automated 05/31/2017 [facility] White Blood 8.4 K/uL Normal 3.4-10.[address] [place] [address] [phone] Red Blood Count 4.67 M/uL Normal 4.20-5.80 [...] 33.0-73.0 Lymph % 38.2 % Normal 20.0-42.0 Coos % 8.3 % Normal 0.0-10.0 Eo% 2.4 % Normal 0.0-6.6 Bas% 0.4 % Normal 0.0-1.1 Neut# 4.25 K/uL Normal 1.8-7.0 Lymph # 3.19 K/uL Normal 1.0-4.0 Coos # 0.69 K/uL Normal 0.0-0.8 Eos # 0.20 K/uL Normal 0.0-0.5 Baso # 0.03 K/uL Normal 0.0-0.1 Laboratory test 05/31/2017 [facility] Thyroid Stim 0.98 Normal 0.30-4.[address] Hormone uIU/[place] [address] [phone] Laboratory test 05/31/2017 [facility] Aldolase 5.0 U/L 3.3-10.3 finding [address] [place] [address] [phone] CK 05/31/2017 [facility] CK,Total 197 U/L 24-204 Isoenzymes,Seru [address] [place] [address] [phone] Macro II 0 % Not Observed CK-mm [...] measurement (ma measurement (mass/volume) Laboratory test 03/08/2017 [facility] CK 705 U/L High 39-308 56 finding [address] [place] [address] [phone] CK-MB (Mass) 6.5 ng/ml High 0.5-3.6 Comprehensive 03/08/2017 [facility] Glucose 98 mg/dL Normal 74-106 Metabolic Panel [address] [place] [address] [phone] BUN 13 mg/dL Normal 7-18 Creatinine 0.9 [...] 44 U/L Low 45-117 CBS W/Automated 03/08/2017 [facility] White Blood 6.5 K/uL Normal 3.4-10.[address] [place] [address] [phone] Red Blood Count 4.34 M/uL Normal 4.20-5.80 [...] 33.0-73.0 Lymph % 30.7 % Normal 20.0-42.0 Coos % 8.9 % Normal 0.0-10.0 Eo% 2.9 % Normal 0.0-6.6 Bas% 0.3 % Normal 0.0-1.1 Neut# 3.74 K/uL Normal 1.8-7.0 Lymph # 2.01 K/uL Normal 1.0-4.0 Coos # 0.58 K/uL Normal 0.0-0.8 Eos # 0.19 K/uL Normal 0.0-0.5 Baso # 0.02 K/uL Normal 0.0-0.1 1 I82.402 Z86.79 E72.12 2 Performed at: [facility] [address] [id number] Life [employer] Specialist: Melisa Elmore MD, Phone: [phone] Note: Persistent reduction for 3 months [...] D deficiency has been defined by the [place] [employer] and an Endocrine Society practice guideline as a level of serum 25-OH vitamin D less than 20 ng/mL (1,2). The Endocrine Society went on to further define vitamin D insufficiency as a level between 21 and 29 ng/mL (2). 1. IOM ([place] [employer]). 2010. Dietary reference intakes for calcium and D. [place]: The National Academies Press. 2. Segundo ESQUIVEL, Missy ESTES, Von RAMOS, et al. Evaluation, treatment, and prevention of vitamin D deficiency: an Endocrine Society clinical practice guideline. JCEM. 2010; 96(7):1911-30. Performed at: [facility] [address] [id number] [employer] Specialist: Melisa Elmore MD, Phone: [phone] Negative: <15 Indeterminate: 15 - 20 Low-Med Positive: >20 - 80 High Positive: >80 6 Negative: <13 Indeterminate: 13 - 20 Low-Med Positive: >20 - 80 High Positive: >80 7 Negative: <12 Indeterminate: 12 - 20 Low-Med Positive: >20 - 80 High Positive: >80 Performed at: [address] [id number] [employer] Specialist: Melisa Elmore MD, Phone: [phone] Vitamin D deficiency has been defined by the [place] [employer] and an Endocrine Society practice guideline as a level of serum 25-OH vitamin D less than 20 ng/mL (1,2). The Endocrine Society went on to further define vitamin D insufficiency as a level between 21 and 29 ng/mL (2). 1. IOM ([place] [employer]). 2010. Dietary reference intakes for calcium and D. [place]: The National Academies Press. 2. Segundo [place], Missy [place], Von RAMOS, et al. Evaluation, treatment, and prevention of vitamin D deficiency: an Endocrine Society clinical practice guideline. JCEM. 2010; 96(7):1911-30. Performed at: [address] [id number] [employer] Specialist: Melisa Elmore MD, Phone: [phone] Note: Persistent reduction for 3 months or more in an eGFR <60 mL/min/1.73 m2 defines CKD. Patients with eGFR values >/=60 mL/min/1.73 m2 may also have CKD if evidence of persistent proteinuria is present. The original MDRD equation for estimated GFR is not valid for patients less than 18 years of age. Additional information may be found at www.kdoqi.org. 10 Performed at: [address] [id number] [employer] Specialist: Melisa Elmore MD, Phone: [phone] I82.402 I26.99 12 Negative: <15 Indeterminate: 15 - 20 Low-Med Positive: >20 - 80 High Positive: >80 13 Negative: <13 Indeterminate: 13 - 20 Low-Med Positive: >20 - 80 High Positive: >80 14 Negative: <12 Indeterminate: 12 - 20 Low-Med Positive: >20 - 80 High Positive: >80 Performed at: [facility] [id number] [employer] Specialist: Melisa Elmore MD, Phone: [phone] Results are consistent with the presence [...] presence of certain anticoagulant therapies. Performed at: [facility] [employer] [id number] [employer] Specialist: Catalino Munroe MD, Phone: [phone] Result: C677T Single mutation (C677T) identified Interpretation: This individual is heterozygous for the MTHFR C677T variant (one copy). The MTHFR G9880S variant was not identified. This combination of [...] common variants in the MTHFR gene, c.655c>T (p.[id number]), referred to as C677T, and c.1286A>C (p.Jbb898Yee), referred to as [id number]. Individuals homozygous for C677T (two copies of [...] conditions in the absence of hyperhomocysteinemia. The I3892I variant is not associated with elevated homocysteine levels unless a C677T variant is also present; however, the clinical significance of heterozygosity for both C677T and B1860U is controversial. Population data suggest that these [...] health care providers to discuss results at [phone]. Methodology: DNA analysis of the MTHFR gene was performed by PCR amplification followed by restriction analysis. The diagnostic sensitivity is >99% for both. Molecular-based testing is highly accurate, but as in any laboratory test, rare diagnostic errors may occur. All test results must be combined with clinical information for the most accurate interpretation. This test was developed and its performance characteristics determined by [facility]. It has not been cleared or approved by the Food and Drug Administration. References: Tesfaye LD, Garcia Q. Am J Epidemiol 2000; 151(9):862-877. Ron MM, Navi JA. Arch Pathol Lab Med 2007; 131(6):872-884. Frosst P et al. Aniya Robyn 1995; 10(1):111-113. Hickey SE et al. Robyn Med 2013; 15(2):153-156. Gilda C et al. Obstet Gynecol 2011; 118(3):730-740. Irvin B et al. Eur J Epidemiol 2013; 28(8):621-647. Ashley Alcazar, PhD, FACMG Vale Mason, PhD, FACMG Trish Butler M.S., PhD, FACMG Mandy Don, PhD, FACMG Kenneth Griffith, PhD, FACMG Balwinder Ngo, PhD, FACMG Performed at: [facility] [address] [facility], [facility], [place] [id number] [employer] Specialist: Yogi Segura MD, Phone: [phone] SINGLE [id number] MUTATION IDENTIFIED (HETEROZYGOTE) Comment: A point mutation ([id number]) in the factor II (prothrombin) gene is [...] mutations. This assay detects only the prothrombin [id number] mutation and does not measure genetic abnormalities [...] health care providers to discuss results at [phone] ([phone]). Methodology: DNA analysis of the Factor II gene was performed by PCR amplification followed by restriction analysis. The diagnostic sensitivity is >99% for both. All the tests must be combined with clinical information for the most accurate interpretation. Molecular-based testing is highly accurate, but as in any laboratory test, diagnostic errors may occur. This test was developed and its performance characteristics determined by [facility]. It has not been cleared or approved by the Food and Drug Administration. Gloriat SR, et al. Blood. 1996; 88:2996-9712. Maribel SYED. Circulation. 2004; 110:e15-e18. Carmen I, et al. Arterioscler Thromb Vasc Biol. 1999; 19:700-703. Ashley Alcazar, PhD, FACMG Vale Mason, PhD, FACMG Trish Butler MDiane., PhD, FACMG Mandy Don, PhD, FACMG Kenneth Griffith, PhD, FACMG Balwinder Ngo, PhD, FACMG Performed at: [facility] [address] [place], [place] [id number] [employer] Specialist: Yogi Segura MD, Phone: [phone] Result: Negative (no mutation found) Factor [...] the workup for venous thrombosis include the [id number] mutation in the factor II (prothrombin) gene, protein S and C deficiency, and antithrombin deficiencies. Anticardiolipin antibody and lupus anticoagulant analysis may be appropriate for certain patients, as well as homocysteine levels. Contact your local [facility] for information on how to order additional testing if desired. Genetic counselors are available for health care providers to discuss results at [phone] ([phone]). Methodology: DNA analysis of the Factor V gene was performed by allele- specific PCR. The diagnostic sensitivity and specificity is >99% for both. Molecular-based testing is highly accurate, but as in any laboratory test, diagnostic errors may occur. All test results must be combined with clinical information for the most accurate interpretation. This test was developed and its performance characteristics determined by [facility]. It has not been cleared or approved by the Food and Drug Administration. References: Dara Fleming (1995). Clin Lab Med 16:169-186. Ashley Alcazar, PhD, FACMG Vale Mason, PhD, FACMG Trish Butler MDiane., PhD, FACMG Mandy Don, PhD, FACMG Kenneth Griffith, PhD, [facility] Balwinder Ngo PhD, FACMG Performed at: - [facility] [address] [place], [place] [id number] [employer] Specialist: Yogi Segura MD, Phone: [phone] m25.571 20 DVT/PE 21 Note: Persistent [...] DVT, or Pulmonary embolism as clinically indicated. ([facility] has established a 97.89% negative predictive [...] assay methods cannot be used interchangeably. Method: Siemens Iizuu Montrose Chemiluminescent immunoassay. 36 M25.562,E83.42,R74.8 37 Note: Persistent [...] Positive >1.09 Performed at: RN - [facility] [address] [id number] [employer] Specialist: Melisa Elmore MD, Phone: [phone] Note: Persistent reduction for 3 months [...] assay methods cannot be used interchangeably. Method: Siemens Iizuu Montrose Chemiluminescent immunoassay. 43 Instrument flagged sample for [...] at www.kdoqi.org. 55 Performed at: RN - [facility] [address] [id number] [employer] Specialist: Melisa Elmore MD, Phone: [phone] r10.9 57 Note: Persistent reduction for 3 months [...] www.kdoqi.org. 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 E78.5 Hyperlipidemia, 2:15p [address] unspecified F41.9 Anxiety disorder, unspecified R25.2 Cramp and spasm I10 Essential (primary) hypertension 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 Office Visit 02/27/2019 11:00a [facility] Family Nurse Z11.[address] screening for respiratory tuberculosis Office Visit 12/31/2018 10:00a Family Medicine Dorothy Amor, I10 Essential (primary) [address] STAFF MECHANICAL ENGINEER hypertension E78.5 Hyperlipidemia, unspecified F41.9 Anxiety disorder, unspecified R25.2 Cramp and spasm Z01.00 Encounter for exam of eyes and vision w/o abnormal findings Office Visit 11/20/2018 2:00p Oncology Office Damien, I26.99 Other pulmonary Kim, DO embolism without acute cor pulmonale I82.402 Acute embolism and [place]ombos unsp deep veins of l low extrem E72.12 Methylenetetrahydrofolate reductase deficiency Office Visit 11/13/2018 1:30p [facility] [place], I10 Essential ( primary) Office Kim [facility] hypertension I82.402 Acute embolism and thombos unsp deep veins of l low extrem E78.5 Hyperlipidemia, unspecified F41.9 Anxiety disorder, unspecified Office Visit 11/07/2018 8:30a Oncology Office Damien, I26.99 Other pulmonary Kim, DO embolism without acute cor pulmonale I82.402 Acute embolism and thombos unsp deep veins of l low extrem Office Visit 10/31/2018 11:15a Primary Care [place]ella M25.571 Pain in right Office MARY ANN Tapia ankle and joints of right foot Office Visit 10/02/2018 1:30p [facility] [place], I82.402 Acute embolism [facility] deep veins of l low extrem I26.99 Other pulmonary embolism without acute cor pulmonale I10 Essential (primary) hypertension R25.2 Cramp and spasm Office Visit 08/14/2018 10:15a Primary Care [place], I10 Essential ( primary) Office Health system hypertension F41.9 Anxiety disorder, unspecified Office Visit 05/25/2018 11:00a Primary Care Dylan, Z01.818 Encounter for other [facility] preprocedural examination M23.222 Derang of post horn [...] Kim Richardson, M25.562 Pain in left Office [facility] knee R74.8 Abnormal levels of other serum enzymes Office Visit 12/20/2017 9:30a Primary Care Dylan, I10 Essential ( primary) Office [facility] hypertension E78.5 Hyperlipidemia, unspecified F41.9 Anxiety disorder, unspecified Office Visit 09/13/2017 11:00a Primary Care Dylan F41.9 Anxiety disorder, Office Health system unspecified Office Visit 09/01/2017 1:15p LEILA Flores MD R14.0 Abdominal distension (gaseous) R12 Heartburn Z12.11 Encounter for screening for malignant neoplasm of colon R63.4 Abnormal weight loss K76.0 Fatty (change of) liver, not elsewhere classified Office Visit 07/26/2017 9:00a [facility] [place], G47.00 Insomnia, Office MARY ANN Alvarez unspecified R14.0 Abdominal distension (gaseous) Office Visit [...] 8:30 am - Dorothy Amor FNP at [facility]
[2019-05-15 07:50] VITALS: BP 125/77
--- NOTE | 2019-05-15 07:59 | UC ---
Lower Extremity/Ankle HPI - HPI Summary HPI Summary: Patient is a 58-year-old male, possible history of gout, here with right ankle swelling. Patient's had 2 days of nontraumatic right ankle swelling. Patient is no fever, overlying redness. Patient is able to move his ankle and walk but does so with pain. Patient's had several episodes on a roughly monthly basis. Patient's currently on anticoagulation for DVT. In the past, patient took Naprosyn which helped but he cannot take it anymore. - History of Current Complaint Chief Complaint: UCLowerExtremity Stated Complaint: R ANKLE PAIN Time Seen by Provider: 05/15/19 07:51 Onset/Duration: Gradual Onset Severity Initially: Mild Severity Currently: Moderate Pain Intensity: 8 - Allergies/Home Medications Allergies/Adverse Reactions: Allergies Allergy/AdvReac Type Severity Reaction Status Date / Time scopolamine Allergy Unknown Verified 05/15/19 07:50 Reaction Details Home Medications: Home Medications Colchicine [Mitigare] 0.6 mg PO 05/15/19 [History] PMH/Surg Hx/FS Hx/Imm Hx Previously Healthy: No - DVT, possible gout - Surgical History Surgical History: Yes Surgery Procedure, Year, and Place: gallbladder removal- 2016. carpal tunnel release. diskectomy- 2014. LEFT KNEE 2019 - Family History Known Family History: Positive: Cardiac Disease, Diabetes - Social History Alcohol Use: Rare Substance Use Type: None Smoking Status (MU): Never Smoked Tobacco Review of Systems All Other Systems Reviewed And Are Negative: Yes Physical Exam - Summary Physical Exam Summary: Vital Signs Reviewed: Yes A+Ox3, no distress Eyes: Conjunctiva Clear ENT: Hearing grossly normal neck: supple Respiratory: Positive: No respiratory distress, No accessory muscle use Cardiovascular: skin color reflect adequate perfusion Musculoskeletal Exam: Right ankle is swollen compared to the left. Patient able to range his ankle. No overlying erythema or warmth. DP/PT pulses 2+. Neurological: Positive: Alert, ambulatory without difficulty Triage Information Reviewed: Yes Vital Signs: Initial Vital Signs Temp 99.0 F 05/15/19 07:45 Pulse 84 05/15/19 07:45 Resp 18 05/15/19 07:45 BP 125/77 05/15/19 07:45 Pulse Ox 98 05/15/19 07:45 Lower Extremity Course/Dx - Course Course Of Treatment: Patient is here with swelling and pain in his right ankle. Patient's history and physical exam is not consistent with septic arthritis. Patient has never had joint aspiration and has a questionable history of possible gout. Patient usually improves with NSAIDs but cannot take those due to his anticoagulant use. Patient was started on a 5 day course of prednisone. - Differential Dx/Diagnosis Differential Diagnosis/HQI/PQRI: Arthritis, Cellulitis, Contusion, Gout, Infection Provider Diagnosis: Arthralgia, Swollen R ankle, DVT (deep venous thrombosis) Discharge - Sign-Out/Discharge Documenting (check all that apply): Patient Departure All imaging exams completed and their final reports reviewed: No Studies - Discharge Plan Condition: Stable Disposition: HOME Prescriptions: predniSONE [Prednisone 20 MG TAB] 40 mg PO QAM 5 Days #5 tablet Patient Education Materials: Gout (ED) Referrals: Dorothy Amor NP [Primary Care Provider] - Additional Instructions: Please ice your ankle at the end of the night Please raise your ankle at the end of the night Please take your medication as prescribed Please return if your ankle becomes red or warm - Billing Disposition and Condition Condition: STABLE Disposition: Home
== END 2019-05-15 08:05 | disposition home or self-care (01) ==
LOC: UCEAST 07:40
DX: R22.41 Localized swelling, mass and lump, right lower limb (principal); M25.571 Pain in right ankle and joints of right foot; I82.4Z1 Acute embolism and thrombosis of unspecified deep veins of right distal lower extremity
CPT/HCPCS: 99212; G0463